=== PATIENT | female | born 1945 | race Caucasian/White ===

== ENCOUNTER 2023-06-07 03:53 | Emergency (ER) | payer MEDICARE, BC, SELFPAY ==
--- NOTE | ~2023-06-07 | XR_ITS ---
EXAMINATION: XR abdomen gastric tube rechec DATE: 06/07/2023 08:52 INDICATION: G-tube reinsertion TECHNIQUE: A supine view of the abdomen and lower chest was obtained for evaluation of feeding tube placement. COMPARISON: None. FINDINGS: Dilution volume of the percutaneous gastrostomy tube projects over the shadow the gastric body in the left upper quadrant. No dilated loops of gas-filled bowel to suggest obstruction. Mild lumbar levocu rvature with moderate to severe lower lumbar spondylosis. Nonspecific globular appearing calcificatio ns project over the right sacrum. IMPRESSION: 1. Percutaneous gastrostomy tube bulb projects over the body the stomach. Reviewed, dictated and finalized at location A. YARD HELPER
[2023-06-07 04:08] VITALS: BP 115/89; PULSE 130; RESP 16; O2SAT 97
[2023-06-07 05:49] VITALS: BP 123/69; PULSE 102; RESP 18; TEMP 36.6; O2SAT 95
--- NOTE | 2023-06-07 07:26 | PC.NURSE ---
patient arrived with olvera catheter in place of g-tube. patient confused during assessment.
--- NOTE | 2023-06-07 07:36 | PC.NURSE ---
spoke with josefina at [facility]. patient pulled G-tube out around 0330. 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 baseline is A&Ox1.
--- NOTE | 2023-06-07 08:29 | ED.GENADULT ---
HPI - General Adult General Chief complaint: Unspecified Stated complaint: G-tube removal Time Seen by Provider: 06/07/23 08:24 History of Present Illness HPI narrative: Patient is a 50-year-old female who presents to the emergency department this morning due to her G-tube coming. Patient had a stroke approximately 2 weeks ago and had a G-tube placed to which at around 3:30 a.m. this morning, G-tube did come off. [facility] did place a Plamer in place of the EG to and patient was brought to our facility for G-tube replaced. Patient is currently denying any symptoms including any abdominal pain, nausea or vomiting. She also denies any chest pain or shortness of breath. There are other modifying, alleviating, or precipitating factors at this time. The remainder of the history present illness is negative unless stated otherwise in HPI. Related Data Allergies Allergy/AdvReac Type Severity Reaction Status Date / Time adhesive tape Allergy Unknown Verified 06/07/23 09:55 simvastatin Allergy Unknown Verified 06/07/23 09:55 Review of Systems Review of Systems: All systems are reviewed and are negative unless stated otherwise in the HPI. PMFSH Comments Recent stroke, status post G-tube placement and colostomy. Patient denies a significant family history. Denies any tobacco use, alcohol abuse, illicit drug use. Exam Narrative: General: Alert, awake, afebrile, in no acute distress. HEENT: PERRL, no rhinorrhea, no post nasal drip, oropharynx clear. Neck: Trachea midline, no JVD, no lymphadenopathy. Cardiovascular: Regular rate and rhythm, no murmurs, rubs or gallops, no peripheral edema. Respiratory: Clear to auscultation bilaterally, no tachypnea, no wheezing, no rhonchi, no rubs, no respiratory distress. Abdomen: Soft, nontender, nondistended, no rebound, no guarding, no peritoneal signs, Palmer in place of the G-tube site, colostomy bag. Musculoskeletal: No joint swelling or deformity, normal muscle tone. Skin: No rashes or petechia, no signs of infection. Psychiatric: Alert and oriented, normal behavior and judgment for situation. Neurological: Alert and oriented to person, place, and time. Follows all commands. No focal deficits, speech is clear and fluent. Course Vital Signs Vital signs: Vital Signs Pulse Rate 130 H 06/07/23 04:08 Respiratory Rate 16 06/07/23 04:08 Blood Pressure 115/89 06/07/23 04:08 Pulse Oximetry 97 06/07/23 04:08 Oxygen Delivery Room Air 06/07/23 04:08 Temperature 97.9 F 06/07/23 05:49 Pulse Rate 98 06/07/23 09:56 Respiratory Rate 20 06/07/23 09:56 Blood Pressure 120/72 06/07/23 09:56 Pulse Oximetry 97 06/07/23 09:56 Oxygen Delivery Room Air 06/07/23 04:08 Medical Decision Making MDM Narrative Medical decision making narrative: The patient was evaluated by myself in the emergency department. History is obtained from patient who is an independent historian and physical exam was performed. External medical records were reviewed at this time. Patient's Palmer catheter worsen moved and 16 and should G-tube was reinserted. Imaging studies obtained included due to abdominal series which was independently interpreted by me revealing proper G-tube positioning, which is pending final radiology interpretation. Differential diagnosis considerations include due to malfunction. Comorbidities impacting this visit include recent stroke status post G-tube placement. I have evaluated and discussed social determinants of health with the patient that could potentially impact subsequent diagnosis and treatment plans. On repeat assessment of the patient, reevaluation revealed that the patient is doing well and is in no acute distress. Patient symptoms have improved since she arrived to our emergency department. Repeat vital signs were all reviewed and noted to be stable. Differential diagnosis and treatment plan were discussed with the patient at bedside. Patient a
--- NOTE | 2023-06-07 08:29 | PC.NURSE ---
g-tube replaced by provider at this time
[2023-06-07 09:56] VITALS: BP 120/72; PULSE 98; RESP 20; O2SAT 97
== END 2023-06-07 10:25 ==
LOC: ANHED 09:30
PROVIDERS: Emergency Provider Emergency Medicine; PCP Internal Medicine
DX: Z43.1 Encounter for attention to gastrostomy (principal); Z86.73 Personal history of transient ischemic attack (TIA), and cerebral infarction without residual deficits; Z93.3 Colostomy status
CPT/HCPCS: 43762; 99283

== ENCOUNTER 2024-05-19 11:06 | Outpatient (RCR) | payer MEDICARE, BC, SELFPAY ==
--- NOTE | 2024-06-01 11:58 | OTOPDC ---
Assessment and note entered by Priyanka Blankenship OT Evaluation Information Assessment Status Discharge Reported Pain Level Pain Score 0: Self Report Assessment OT Clinical Summary The patient demonstrates minimal progress toward L UE AROM, visual neglect, L UE strength and digit extension which have increased the mobility of L wrist, elbow and shoulder to avoid contractures and attend to left side of patient. The patient demonstrates no progress in self feeding skills, digit extension and digit opposition due to no carryover of HEP at home and cognitive deficits that affect her initiation of exercises and memory to complete activities at home. The patient demonstrates minimal progress toward goals at this time resulting in decreased function of L UE and continued L sided neglect affecting use of L UE during daily tasks. Therapist has educated patient and daughter on completing HEP and to address visual neglect with exercises and compensatory strategies. The patient demonstrates difficulty with carryover and is discharged this date due to minimal progress and has been educated to complete HEP with therapist sending the patient home with HEP and instructions on continued practice of visual scanning techniques at home. Plan of Care OT Services Indicated No
--- NOTE | 2024-06-01 11:58 | OPREHPOC ---
Outpatient Therapy Plan of Care This is a Multidisciplinary Plan of Care that may contain components documented by all disciplines (PT, OT, and ST.) PT Problem 1 PT Problem #1 Knowledge Deficit PT Goal 1 Goal / Goal Update 1. independent and compliant with HEP Target Visit 6 Progress Not Met PT Goal 2 Goal / Goal Update need home theatre technician or family assist Target Visit 20 PT Problem 2 PT Problem #2 Impaired Balance PT Goal 1 Goal / Goal Update 1. no falls while a patient of skilled PT. Target Visit 12 Progress Met PT Goal 2 Goal / Goal Update . Target Visit 20 PT Problem 3 PT Problem #3 Impaired Functional Mobility PT Goal 1 Goal / Goal Update 1. patient to perform sit to stand with SBA without cueing needed 2. patient to independently grab onto WW with both hands 3. patient to safely ambulate 40ft with WW and SBA Target Visit 12 Progress Not Met PT Goal 2 Goal / Goal Update . Target Visit 20 OT Problem 1 OT Problem #1 Knowledge Deficit OT Goal 1 Goal / Goal Update The patient and family will demonstrate understanding and follow through with HEP to improve UE function needed to maximize independence with ADLs. DISCONTINUE Target Visit 20 Progress Not Met OT Problem 2 OT Problem #2 Impaired Functional ADLs OT Goal 1 Goal / Goal Update The patient will demonstrate good skill for self feeding performing with mod I using L UE to maintain nutrition. DISCONTINUE; POOR CARRYOVER Target Visit 20 Progress Partially Met OT Problem 3 OT Problem #3 Impaired Range of Motion OT Goal 1 Goal / Goal Update The patient will demonstrate increased AROM of L UE demonstrating L shoulder abduction at 90 degrees, L shoulder flexion >50 degrees, L elbow extension to 0 degrees, L wrist extension >40 degrees, full digit flexion and extension in order to reach overhead to don shirts. GOAL PROGRESSING; CONTINUE Shoulder abduction: 82 degrees Shoulder flexion: 85 degrees Elbow extension: 32 degrees from 0 into flexion Wrist extension: 30 degrees DISCHARGE: Shoulder abduction: 91 degrees Shoulder flexion: 90 degrees Elbow extension: 40 degrees from 0 into flexion Wrist extension: 55 degrees Target Visit 20 OT Problem 4 OT Problem #4 Impaired Strength OT Goal 1 Goal / Goal Update The patient will demonstrate L UE elbow flexion/ extension strength at 5/5 and L shoulder abduction at 4-/5 needed to perform UB/LB dressing tasks. GOAL PROGRESSING; CONTINUE L UE STRENGTHENING Elbow flexion/extension: 4/5 Shoulder abduction: 3-/5 with pain reported in muscle R shoulder flexion: 5/5 R elbow flexion/extension: 5/5 DISCHARGE: Elbow flexion: 4+/5 Elbow extension: 4/5 Shoulder abduction: 3+/5 with pain reported in muscle R shoulder flexion: 5/5 R elbow flexion/extension: 5/5 Target Visit 20 Progress Partially Met OT Goal 2 Goal / Goal Update The patient will demonstrate >45 lbs of career services assistant strength of L hand needed to grasp items for grooming. DISCONTINUE TO FOCUS ON EXTENSION L career services assistant: 15 lbs Target Visit 10 Progress Not Met OT Problem 5 OT Problem #5 Impaired Coordination OT Goal 1 Goal / Goal Update The patient will demonstrate increased fine motor coordination of L hand by performing digit opposition to L ring and small finger with minimal difficulty needed to perform grooming. DISCONTINUE TO FOCUS ON EXTENSION The patient is able to oppose digits to ring finger but unable to reach small finger DISCONTINUE Target Visit 10 Progress Not Met OT Goal 2 Goal / Goal Update The patient will demonstrate decreased L sided neglect locating >14 bells on Bahena Cancellation test and will require min verbal cues to follow two step commands needed to improve cognition for daily tasks. 17 bells to R 2/3 of page, minimal to moderate verbal cues to follow 2-step commands. DISCONTINUE Target Visit 20 Progress Not Met
== END 2024-06-01 13:22 | disposition home or self-care (01) ==
LOC: CHSOT 11:06
DX: I69.398 Other sequelae of cerebral infarction (principal); R26.2 Difficulty in walking, not elsewhere classified; R53.1 Weakness
CPT/HCPCS: 97110; 97112; 97140; 97530

== ENCOUNTER 2024-06-06 12:54 | Emergency (ER) | payer MEDICARE, SELFPAY ==
--- OUTSIDE RECORDS SUMMARY | 2024-06-06 12:56 | XMS_ITS | Referral Summary ---
Author Organization [facility] Address [address] [place] [address] Care Team Providers Care Endoscopy Registered Nurse Name Role Phone Christine Ortiz TIMBER INSPECTOR-WOMENS VOLLEYBALL COACH Primary Care Provider Source Comments [facility],non-owned Affiliates and Associated Physician Practices is amultiple site organization consisting of ambulatory clinics and hospital sitesin [place], [place], [place] and [place]. This disclosure is being madepursuant to the Care Everywhere program and may not contain all information available regarding this patient. Last updated 18.[facility] Encounters Date Type Department Care Team Description 04/20/2024 Refill [facility] [address] [place] [address], [place] [address] Faith Spicer MD Refill Request from Last 3 Months Allergies Active Allergy Reactions Criticality Noted Date Comments Adhesive Sensitivity Rash,Eye Redness Medium Simvastatin Psychiatric Medium 12/17/2017 Causes cognitive impairment Medications * Be aware that medications may not be up to date on this document. Alwaysverify current medications with the patient. Medication Sig Dispensed Refills Start Date End Date Status acetaminophen (TYLENOL) 325 MG tablet Take 2 tablets by mouth every 6 hours as needed for Pain Maximum allowable Acetaminophen amount = 4 Grams (4000 mg) / 24 hours. 01/14/2018 Active amiodarone (Cordarone) 200 MG tablet Take 1 (one) tablet by mouth once daily 60 tablet 5 12/16/2023 Active aspirin (Aspirin) 81 MG chew tablet Take 1 (one) tablet by mouth once daily 100 tablet 4 12/16/2023 Active nystatin (Mycostatin) 226663 UNIT/GM powder Apply to affected area 2 times daily 60 g 5 12/16/2023 Active escitalopram (Lexapro) 20 MG tablet Take 1 (one) tablet by mouth once daily 90 tablet 4 12/16/2023 Active atorvastatin (Lipitor) 20 MG tablet Take 1 (one) tablet by mouth once daily 100 tablet 4 12/16/2023 Active psyllium (Metamucil) 58.6 % powder Take 1 (one) packet by mouth 2 times daily 54 packet 5 12/16/2023 Active traZODone (Desyrel) 50 MG tablet Take 1 (one) tablet by mouth at bedtime 90 tablet 4 12/16/2023 Active Cholecalciferol (Vitamin D3) 25 MCG (1000 UT) Take 1 (one) capsule by mouth once daily 30 capsule 5 12/16/2023 Active metoprolol succinate XL 24hr (Toprol XL) 50 MG tablet TAKE 1 TABLET BY MOUTH EVERY DAY 90 tablet 1 01/13/2024 Active OLANZapine (ZyPREXA) 2.5 MG tabletIndications: Psychosis, unspecified psychosis type (HCC) Take 1 (one) tablet by mouth once daily 90 tablet 4 02/20/2024 Active levETIRAcetam (Keppra) 500 MG tablet TAKE 1 (ONE) TABLET BY MOUTH 2 TIMES DAILY 180 tablet 3 04/22/2024 Active Active Problems Problem Noted Date Diagnosed Date Goals of care, counseling/discussion 10/18/2023 Malnutrition 08/20/2023 Acute on chronic intracranial subdural hematoma 08/18/2023 Recurrent falls 08/18/2023 Colon adenocarcinoma 07/15/2023 CVA (cerebrovascular accident) 06/20/2023 Malignant tumor of colon 06/20/2023 Non-ST elevation (NSTEMI) myocardial infarction 06/20/2023 Presence of cardiac pacemaker 07/12/2021 Bradycardia 06/22/2021 Sinoatrial block 06/22/2021 Sick sinus syndrome 06/22/2021 Status post placement of implantable loop record er 06/06/2021 SHRUTHI (obstructive sleep apnea) 10/13/2017 Atrial fibrillation with RVR 09/16/2017 Sleep apnea 09/16/2017 HTN (hypertension) 07/13/2015 Asthma 07/13/2015 Syncope 05/29/2015 Essential hypertension 02/21/2015 Overview (02/26/2024): Essential hypertension Multiple-type hyperlipidemia 02/21/2015 Overview (02/26/2024): Mixed hyperlipidemia Arteriosclerosis of coronary artery 05/07/2013 Overview (02/26/2024): CRNRY ATHRSCL NATVE VSSL Paroxysmal atrial fibrillation 05/07/2013 Overview (02/26/2024): ATRIAL FIBRILLATION Resolved Problems Problem Noted Date Diagnosed Date Resolved Date Family history of hypertension 02/26/2024 02/26/2024 Acute renal failure 10/18/2023 02/26/20 24 Delirium 10/18/2023 02/26/2024 Leukocytosis 10/18/2023 02/26/2024 E. coli UTI (urinary tract infection) 08/24/2023 03/11/2024 Delirium due to another medical condition 08/21/2023 02/26/2024 History of cardioembolic cer ebrovascular accident (CVA) 07/15/2023 02/26/2024 Encounter for preprocedural cardiovascular examination 06/20/2023 02/26/2024 Ventricular fibrillation 06/20/202310/2023 Abnormal finding on GI tract imaging 04/05/2023 02/26/2024 Gastrointestinal hemorrhage 04/05/2023 02/26/2024 Acute stroke due to ischemia 03/26/2023 02/26/2024 Persistent atrial fibrillation 06/14/2020 02/26/2024 Atrial flutter 03/25/2019 02/26/2024 Ankle edema 01/27/2019 02/26/2024 Weak arterial pulse 01/27/2019 02/26/20 Chronic anticoagulation 07/28/201710/2023 Immunizations Name Administration Dates Next Due COVID PFIZER BIVALENT 12Y+ 30mcg/0.3ML Covid Pfizer primary monoval ent 12+ yr 0.3mL Purple cap 03/02/2021,07/13/2020,06/14/2020 FLU VACCINE TRI IIV3 SPLIT IM (FLUVIRIN) 017,01/20/2012 INFLUENZA VACCINE, HIGH-DOSE , QUADR. (FLUZONE HIGH-DOSE QUADRIVALENT; 65Y+), 0.7 ML (HD-IIV4) 01/20/2022,02/01/2021 INFLUENZA VACCINE, HIGH-DOSE , TRIV. (FLUZONE HIGH-DOSE TRIVALENT; 65Y+) (HD-IIV3) 02/11/2018,04/25/2015 INFLUENZA VACCINE, QUADR. (A FLURIA, FLUZONE QUADRIVALENT; 6MO+) (IIV4) 01/20/2020,02/17/2014 INFLUENZA VACCINE, QUADR. (F LUZONE; FLULAVAL; FLUARIX; AFLURIA QUADRIVALENT; 6MO+), 0.5 ML (IIV4) 02/12/2019 PNEUMOCOCCAL PPV VACCINE 05/05/2012 Pneumococcal Pcv13 Conj 02/12/2019 TDAP, HISTORIC VACCINE 02/19/2019 Zoster Hzv Vacc Recombinant Inj Im 05/07/2019, Social History Tobacco Use Types Packs/Day Years Used Date Smoking Tobacco: Former Smokeless Tobacco: Never Comments:quit 36 yrs ago Alcohol Use Standard Drinks/Week Comments Yes 14 (1 standard drink = 0.6 oz pu re alcohol) Sex and Gender Information Value Date Recorded Sex Assigned at Not on file Gender Identity Not on file Sexual Orientation Not on file Last Filed Vital Signs Vital Sign Reading Time Taken Comments Blood Pressure 94/69 02/20/2024 9:34 AM CDT Pulse 90 02/20/2024 9:34 AM CDT Temperature 36.7 C (98 F) 11/08/2023 11:43 AM CDT Respiratory Rate 18 11/08/2023 11:43 AM CDT Oxygen Saturation 94% 02/20/2024 9:34 AM CDT Inhaled Oxygen Concentration - - Weight 62.6 kg (138 lb) 11/08/2023 11:43 AM CDT Height 157.5 cm (5' 2 ) 11/08/2023 11:43 AM CDT Body Mass Index 25.24 11/08/2023 11:43 AM CDT Functional Status Functional Status Response Date of Assess ment Is person deaf or have serious hearing difficult y? No 09/16/2017 Is person blind or have serious difficulty seein g? Yes 09/16/2017 Does person have serious dif ficulty walking/climbing stairs? No 09/16/2017 Does person have difficulty dressing/bathing? No 09/16/2017 Does person have difficulty doing errands alone? No 09/16/2017 Cognitive Status Response Date of Assessm ent Does person have difficulty concentrating/remembering/making decisions? No 09/16/2017 Plan of Treatment Upcoming Encounters Date Type Department Care Team (Late st Contact Info) Description 2024 11:00 AM CAP INSPECTOR Office Visit [facility] [address], [place] [address] Christine Ortiz, CECILIA-WOMENS VOLLEYBALL COACH [address] [address] Advance Directives * Full Code (Latest Code Status on File) Date Activated Date Inactivated Comments 09/16/2017 6:24 PM 09/19/2017 4:15 PM Care Teams Endoscopy Registered Nurse Relationship Specialty Start Date End Date Christine Ortiz, CECILIA-WOMENS VOLLEYBALL COACH [facility] [address] PCP - General Nurse Practitioner 01/12/24
--- OUTSIDE RECORDS SUMMARY | 2024-06-06 12:56 | XMS_ITS ---
Author Organization [facility] Address [address] [place] [address] Care Team Providers Care Cinema Operator Name Role Phone AngelFrancesmark Almeida CORE JAVA SOFTWARE ENGINEER-JEWELRY CASTING MODEL MAKER Primary Care Provider Active Problems Problem Noted Date Diagnosed Date [...] atrial fibrillation 05/07/2013 Overview (02/26/2024): ATRIAL FIBRILLATION Current Oncology Plans No current plan information found. Past Plans No past plan information found. Radiation Treatments * No radiation treatments are documented for this patient in [facility]. Treatments may have been administered in another system. Lifetime Dose Tracking * Chemical Lifetime Dose Automatic Entry Manual Entr y Dose Length Product 2,201.64 mGy-cm 2,201.64 mGy-cm 0 mGy-cm Resolved Problems Problem Noted Date Diagnosed Date Resolved Date Family history of hypertension 02/26/2024 02/26/2024 Acute renal failure 10/18/2023 02/26/20 Delirium 10/18/2023 02/26/2024 Leukocytosis 10/18/2023 02/26/2024 E. [...]
--- OUTSIDE RECORDS SUMMARY | 2024-06-06 12:56 | XMS_ITS ---
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 More lucid in morning but usually doesn't know date or place, forgetful, talks about people who're , sundowns daily. At baseline is 1 assist, needs assistance with ADLs, needs wheelchair when outside. [facility] care clinic increased her zyprexa around 10/09 to 5mg at 8am and 5mg at 3p and made her trazodone scheduled at 9pm daily to help w sundowning.Pt started having lethargy and somnolence 10/15 pm Workup with wnl B12, folate, TSH, HIV, RPR. HCT shows no acute changes, improving SDH Ddx includes uremia from severe LLUVIA vs polypharmacy from recently increased psychotropics Giving IVF with resolving LLUVIA Required 1:1 observation for pt safety now off. Delirium precautions. Acute renal failure 10/18/2023 Assessment & Plan (10/27/2023 7:31 PM CDT): BUN 87, Cr 5 (baseline Cr 0.5). with AGMA (likely uremia. Wnl ketone and lactate), hyperphos, uric acid 11 Likely pre-renal iso lethargy. Improving w IVF. Kidney US normal without hydronephrosis Started bicarb. Rasburicase x1 for hyperuricemia - now resolved. PVRs were approp on 10/18 but then developed retention iso AMS - olvera placed 10/19>>removed 10/24 but failed voiding trial and replaced. Discussed(by previous hospitalist) w renal - likely prerenal.Given improvement with IVF will continue IVF and consult if plateaus Goals of care, counseling/discussion 10/18/2023 Assessment & Plan (10/27/2023 7:28 PM CDT): POA: Daughter Thu is primary, daughter Laila is alternate Code Status: Thu wants FC, Laila wants DNRDNI Given recent decline and acute renal failure, cont GOC. Pall care cs as they see her outpt and have been managing her psychotropics Leukocytosis 10/18/2023 Assessment & Plan (10/27/2023 7:28 PM CDT): WBC 15 on admit,now resolved workup: no fevers, UA neg, CXR neg, flu/covid neg Suspicion for infection was low, likely just hemoconcentrated. No ostomy changes or abd symptoms to suspect intraabd infection. 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 No acute fracture or osseous erosion related to the multifocal soft tissue swelling. E. coli UTI (urinary tract infection) 08/24/2023 Assessment & Plan (10/27/2023 7:31 PM CDT): UA from 10/23 positive, cultures growing E coli Ceftriaxone 1 g daily for 3 days Assessment & Plan (08/25/2023 10:55 PM CDT): - UA from 08/22 was remarkable for bacteruria with LE+. Could likely be contributing to the delirium - Started on Ceftriaxone on 08/22, UCx was remarkable for urogenital carlos - Plan to complete a 5 day course given improvement in mentation till 08/26 Delirium due to another medical condition 2023 Assessment & Plan (08/25/2023 10:55 PM CDT): - Noted fluctuations in mood with episodes of delirium/agitation which is likely multifactorial iso age related changes,active malignancy, prolonged illness and particularly post CVA. - Psych consulted and per recs and given c/f prolonged QTC, held Memantine,Celexa and Quetiapine. - c/w Olanzapine 2.5 mg po q12h - Counseled the family that these potential changes may be permanent and not reversible. Recommended palliative care consult for better symptom management as OP. - UA from 08/22 was remarkable for bacteruria with LE+. Could likely be contributing to the delirium. Started on IV Abx on 08/22. Malnutrition (CMS/HCC) 08/20/2023 Assessment & Plan (08/21/2023 6:16 PM CDT): - RD following Acute on chronic intracranial subdural hematoma (CMS/HCC) 08/18/2023 Assessment & Plan (10/27/2023 7:29 PM CDT): Last hospitalized here 08/2023 for acute on chronic SDH iso fall. No intervention per nsgy Repeat HCT 10/17 w/ decrease in size of SDH, no other acute abnormalities Fall precautions Delirium precautions Per last NSGY note in July, for VTE ppx Assessment & Plan (08/25/2023 11:00 PM CDT): - Patient with prior history of L frontoparietal SDH s/p L MMA embolization on 06/24/23 presenting following recurrent fall with trauma to L-side of face with Head CT at [place] overread as concern for increase in size of chronic L SDH - she was recommended to return for further evaluation - Here evaluation with stable CMP/CBC, hs-trop 4, UA negative, EKG paced-rhythm, CXR clear, and Head CT with slight interval increase in size/density of mixed density L cerebral convexity subdural collection without significant midline shift or new/acute intracranial hemorrhage. - NSGY evaluated with recommendation for close monitoring without any further intervention. - Cont q8 neurochecks, fall precautions. - PT/OT is recommending IPR, family is exploring their options given high recurrent fall risk and decline in function. Eligible for TRISL per CM but the participation would depend on further clinical course Recurrent falls 08/18/2023 Assessment & Plan (08/23/2023 1:50 PM CDT): - Imaging/exam with extensive L frontal scalp hematoma without facial fracture - Geritrauma evaluated with no concern for new injury - PT/OT is recommending IPR, family is agreeable for STR per CM,awaiting placement - Fall precautions Colon adenocarcinoma 07/15/2023 Assessment & Plan (10/27/2023 7:30 PM CDT): Diagnosed during prolonged hospitalization in 03/2023 now s/p R hemicolectomy with ostomy, deemed not a candidate for adjuvant therapy given comoribidities. Follows with Dr. Calloway. Ostomy care Given recent decline cont GOC w family Assessment & Plan (07/15/2023 1:43 AM CDT): Follows with Dr. Sanchez. 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 S/p R hemicolectomy with end ileostomy 04/19/2023, path showing ascending colon adenocarcinoma WITHOUT further NEC component. 0/19 LN. LVI+/PNI+. Adjuvant chemotherapy NOT recommended, and recommended surveillance. 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 Resume on discharge - Not on AC at this time due to SDH with plan for Watchman procedure in future for AF Syncope 07/14/2023 Assessment & Plan (07/15/2023 4:50 PM CDT): Reported tachypnea, head falling back, loss of consciousness around 07/13 @1400 while in wheelchair getting ostomy cleaned. Suspect vasovagal vs cardiogenic. 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 Interrogation normal. No episodes of VFib/Vtach. Patient in AFib, which is chronic. Plan - Telemetry -Follow EEG in process, if positive will consult Neuro - Hold lasix for now, restart pending initial workup -obtain UA -Plan to discharge tmrw pending remaining workup Abnormal finding on GI tract imaging 04/05/2023 Gastrointestinal hemorrhage 04/05/2023 Acute stroke due to ischemia 03/26/2023 Status post placement of implantable loop record er 06/06/2021 Persistent atrial fibrillation 06/14/2020 Assessment & Plan (08/18/2023 11:41 PM CDT): - Cont metoprolol SHRUTHI (obstructive sleep apnea) 10/13/2017 Assessment & Plan (10/18/2023 9:29 PM CDT): Noncompliant w/ CPAP Assessment & Plan (08/18/2023 11:41 PM CDT): - Non-compliant with CPAP Assessment & Plan (07/15/2023 1:37 AM CDT): Not adherent to CPAP Chronic anticoagulation 07/28/2017 Essential hypertension 02/21/2015 Overview (07/26/2016): Essential hypertension Assessment & Plan (10/18/2023 9:29 PM CDT): Metop Assessment & Plan (08/18/2023 11:41 PM CDT): - Cont metoprolol Multiple-type hyperlipidemia 02/21/2015 Overview (07/26/2016): Mixed hyperlipidemia CAD (coronary artery disease) 05/07/2013 Overview (07/25/2016): CRNRY ATHRSCL NATVE VSSL Assessment & Plan (10/27/2023 7:30 PM CDT): s/p stents 03/2023 ASA (ok'ed per last nsgy note), statin, metop Assessment & Plan (08/21/2023 6:19 PM CDT): - s/p cardiac arrest in setting of NSTEM s/p GUERA to LAD in 03/2023 - Held Plavix given high risk for recurrent falls after discussing with cardio/Onc - Cont ASA, statin, metoprolol - CTM Paroxysmal atrial fibrillation ([facility]/HCC) 014 Overview (07/25/2016): ATRIAL FIBRILLATION Assessment & Plan (10/27/2023 7:30 PM CDT): Amio, metop Not on AC d/t SDH Assessment & Plan (07/15/2023 1:30 AM CDT): S/p ablation and PPM placement. Not on AC due to SDH, and planning on Watchman procedure at some point in the future - Continue home toprol 200mg, amiodarone 200mg daily - Biotronik DCPPM Current Treatment and Therapy Plans No current plan information found. Past Treatment and Therapy Plans No past plan information found. Lifetime Dose Tracking * Chemical Lifetime Dose Automatic Entry Manual Entr y Fluoro Time 48.1 minutes 48.1 minutes 0 minutes Air kerma at the reference point (Ka,r) 2,142.5 mGy 1 ,371.5 mGy 771 mGy DLP 24,046 mGycm 24,046 mGycm 0 mGycm Resolved Problems Problem Noted Date Diagnosed Date Resolved Date Subdural hematoma 07/15/2023 08/18/2023 Assessment & Plan (08/18/2023 11:43 PM CDT): - Assessment & Plan (07/15/2023 1:36 AM CDT): Subdural hematoma left sided unchanged from prior, s/p MMA embolization 06/2023. Cardiac arrest due to NSTEMI s/p GUERA 05/02/2023 04/05/2023 08/18/2023 Assessment & Plan (07/15/2023 5:40 AM CDT): Prior VF arrest found with LAD lesion s/p PCI GUERA 05/02/2023. ICD deferred due to reversible lesion at the time. - Home ASA/plavix/statin Malignant neoplasm of ascend ing colon (CMS/HCC) 04/05/2023 10/18/2023 Cancer Staging:Pathologic stage from 04/19/2023:Stage IIA(pT3, pN0, cM0) - Signed by Lea Sanchez MD on 06/02/2023 Assessment & Plan (08/24/2023 2:29 PM CDT): - Diagnosed during prolonged hospitalization in 03/2023 now s/p R hemicolectomy with ostomy, deemed not a candidate for adjuvant therapy given comoribidities - Follows with Dr. Calloway - [facility] On amiodarone therapy 05/20/20182020 Goals of care, counseling/discussion 07/28/2017 10/18/2023 Postprocedural state 02/21/2015 019 Overview (07/26/2016): S/P ablation of atrial fibrillation Atrial flutter ([facility]) 05/07/2013 Overview (07/26/2016): ATRIAL FLUTTER Assessment & Plan (08/18/2023 11:41 PM CDT): - Cont metoprolol
--- OUTSIDE RECORDS SUMMARY | 2024-06-06 12:56 | XMS_ITS | Clinical Summary ---
Author Organization [facility] [address] Address [address] [place] [address] Care Team Providers Care Environmental Field Team Member Name Role Phone Neeraj Izaguirre MD, William C. Unavailable Faith Streeter NP Unavailable Jef Qureshi MD Unavailable [phone] Faith Spicer MD Primary Care Provider [phone] Sena Matthews MD Unavailable [phone] Allergies Active Allergy Reactions Criticality Noted Date Comments Adhesive Rash,Redness Medium 06/17/2023 Simvastatin Mental status changes Low 12/17/2017 Causes cognitive impairment Medications amiodarone (PACERONE) 400 mg tablet Take 0.5 tablets (200 mg total) by mouth daily 05/13/19 24 Active artificial tears,hypromellos e, 0.3 % drops Administer 1 drop into affected eye(s) every 4 (four) hours as needed Active metoprolol XL (TOPROL-XL) 50 mg extended release tablet Take 1 tablet (50 mg total) by mouth daily Active acetaminophen (TYLENOL) 325 mg tablet Take 2 tablets (650 mg total) by mouth every 6 (six) hours as needed for pain Active atorvastatin (LIPITOR) 40 mg tabletIndications :hyperlipidemia Take 1 tablet (40 mg total) by mouth nightly 08/27/19 24 025 Active Additional Information Patient taking differently: 20 mgoral Nightly, Indications: hyperlipidemia, Reported on 05/07/2024 aspirin 81 mg chewable tablet Take 1 tablet (81 mg total) by mouth every morning 08/28/19 24 025 Active polysaccharide iron complex (NU-IRON) 150 mg iron capsuleIndication s:Iron Deficiency Anemia Take 1 capsule (150 mg total) by mouth daily Active nystatin powder Apply to affected area with pouch changes 30 g 1 10/03/19 24 Active traZODone (DESYREL) 50 mg tablet Take 1 tablet (50 mg total) by mouth nightly 10/28/19 24 Active sodium bicarbonate 650 mg tablet Take 1 tablet (650 mg total) by mouth 3 (three) times a day 10/28/19 24 025 Active ketotifen (ZADITOR) 0.025 % ophthalmic solutionIndicatio ns:Allergic Conjunctivitis Administer 2 drops into the right eye daily 10/28/19 24 Active escitalopram (LEXAPRO) 10 mg tablet Take 1 tablet (10 mg total) by mouth daily Active cholecalciferol 25 mcg (1,000 unit) tablet Take 1 tablet (1,000 Units total) by mouth daily Active levETIRAcetam (KEPPRA) 500 mg tablet Take 1 tablet (500 mg total) by mouth 2 (two) times a day 60 tablet 11/11/19 24 Active psyllium (MetamuciL) 0.4 gram capsule Take 1 capsule (0.4 g total) by mouth 2 (two) times a day Active loperamide (IMODIUM) 2 mg capsuleIndication s:high output ileostomy Take 2 capsules (4 mg total) by mouth 3 (three) times a day with meals 168 capsule 2 12/08/19 24 Active levalbuterol (XOPENEX) 0.63 mg/3 mL nebulizer solutionIndicatio ns:Intermittent asthma, unspecified asthma severity, unspecified whether complicated Take 3 mL (0.63 mg total) by nebulization every 6 (six) hours as needed for wheezing 180 mL 1 12/29/19 24 Active psyllium, aspartame, SF (Daily Fiber, psyllium-aspart,) 3.4 gram packet Take 1 packet by mouth 2 (two) times a day 12/16/19 24 Active baclofen (LIORESAL) 5 mg tablet Take 0.5 tablets (2.5 mg total) by mouth 3 (three) times a day 90 tablet 3 05/07/19 25 025 Active QUEtiapine (SEROquel) 25 mg tabletIndications :agitation in dementia Take 1 tablet (25 mg total) by mouth nightly 30 tablet 11 06/04/19 25 026 Active OLANZapine (ZyPREXA) 2.5 mg tabletIndications :agitation/ dementia Take 1 tablet (2.5 mg total) by mouth daily as needed (agitation) 30 tablet 3 06/04/19 25 Active OLANZapine (ZyPREXA) 5 mg tablet Take 1 tablet (5 mg total) by mouth nightly 30 tablet 3 06/04/19 25 026 Active nitrofurantoin monohydrate (MACROBID) 100 mg capsuleIndication s:Urinary Tract/Genitourina ry Infection Take 1 capsule (100 mg total) by mouth 2 (two) times a day 14 capsule 02/02/20 24 025 Discontinu ed(Therapy completed) QUEtiapine (SEROquel) 25 mg tabletIndications :agitation in dementia Take 1 tablet (25 mg total) by mouth nightly 30 tablet 05/07/19 25 025 Discontinu ed(Reorder ) ciprofloxacin (CIPRO) 500 mg tabletIndications :Urinary Tract/Genitourina ry Infection Take 1 tablet (500 mg total) by mouth 2 (two) times a day for 5 days 10 tablet 05/12/19 25 025 Active Problems Problem Noted Date Diagnosed Date Delirium 10/18/2023 Assessment & Plan (10/27/2023 7:28 PM CDT): Per daughter, at baseline pt has left sided weakness, arm weaker than leg. More lucid in morning but usually doesn't know date or place, forgetful, talks about people who're , sundowns daily. At baseline is 1 assist, needs assistance with ADLs, needs wheelchair when outside. 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 Interrogation normal. No episodes of VFib/Vtach. Patient [...] CAD (coronary artery disease) 05/07/2013 Overview (07/25/2016): CRBIMAL MYERSCL NATVE VSSL Assessment & Plan (10/27/2023 7:30 [...] statin, metoprolol - CTM Paroxysmal atrial fibrillation (CMS/HCC) 014 Overview (07/25/2016): ATRIAL FIBRILLATION Assessment & Plan (10/27/2023 7:30 PM CDT): Amio, metop Not on AC d/t SDH Assessment & Plan (07/15/2023 1:30 AM CDT): S/p ablation and PPM placement. Not on AC due to SDH, and planning on Watchman procedure at some point in the future - Continue home toprol 200mg, amiodarone 200mg daily - Biotronik DCPPM Resolved Problems Problem Noted Date Diagnosed Date [...] comoribidities - Follows with Dr. Calloway - CT On amiodarone therapy 05/20/20182020 Goals of care, counseling/discussion 07/28/2017 10/18/2023 Postprocedural state 02/21/2015 019 Overview (07/26/2016): S/P ablation of atrial fibrillation Atrial flutter ([facility]) 05/07/2013 Overview (07/26/2016): ATRIAL FLUTTER Assessment & Plan (08/18/2023 11:41 PM CDT): - Cont metoprolol Encounters Date Type Department Care Team Description 06/04/2024 1:00 PM SHOP TEACHER Residential Visit [facility] Palliative Care [address] [place] [address] Francisca Senior NP Arrived 05/14/2024 9:00 AM SHOP TEACHER Residential Visit [facility] Palliative Care [address] [place] [address] Francisca Senior NP Vascular dementia with other behavioral disturbance, unspecified dementia severity (HCC) (Primary Dx); Urinary tract infection without hematuria, site unspecified; CVA, old, hemiparesis ([facility]) (HCC); Palliative care encounter 05/12/2024 Documentation [facility] Palliative Care [address] [place] [address] Francisca Senior NP 05/12/[address] [address] Beti Granados RN 05/11/[address] [address] Beti Granados RN 05/10/[address] [address] Beti Granados, RN 05/07/2024 10:00 AM SHOP TEACHER Office Visit [facility] Stroke [address] [facility] [address] [place] [phone] Sena Matthews MD History of ischemic stroke (Primary Dx); Moderate dementia with agitation, unspecified dementia type (HCC); Spasticity due to old stroke 05/07/2024 Documentation [facility] Palliative Care [address] [place] [address] Francisca Senior NP 03/19/2024 1:00 PM SHOP TEACHER Residential Visit [facility] Palliative Care [address] [place] [address] Francisca Senior NP CVA, old, hemiparesis ([facility]) ([facility]) (Primary Dx); Coronary artery disease involving coquille heart, unspecified vessel or lesion type, unspecified whether angina present; Presence of ileostomy ([facility]) ([facility]); Agitation; Paroxysmal atrial fibrillation ([facility]) ([facility]) from Last 3 Months Immunizations Immunization Administration Dates Next Due Influenza, Quadrivalent, Split, Intramuscular ,02/17/2014 Influenza, Quadrivalent, Spl it, Preservative Free, Intramuscular 02/12/2019 Influenza, Trivalent, High D ose, Split, Preservative Free, Intramuscular 02/11/2018,04/25/2015 Influenza, Trivalent, IM (MDV) 02/18/2017,2011 Pneumococcal Conjugate PCV 13 02/12/2019 Pneumococcal Polysaccharide PPV23 05/05/2012 Tdap 02/19/2019 ZOSTER Recombinant 05/07/2019,02/19/2019 Surgical History Surgery Date Site/Laterality Comments HYSTERECTOMY IR G TUBE PLACEMENT PERCUTANEOUS 04/01/2023 N/A CARDIAC PACEMAKER PLACEMENT HEMICOLECTOMY W/ OSTOMY 04/19/2023 Right Stage II ascending colon adenocarcinoma. Potential for future ileostomy reversal. CORONARY ANGIOPLASTY WITH ST ENT PLACEMENT 05/02/2023 Bilateral LAD stenosis, GUERA placement Medical History Medical History Date Comments Hyperlipidemia Hypertension Atrial fibrillation ([facility]) ([facility]) Pacemaker in place Asthma SHRUTHI (obstructive sleep apnea) In tolerant of CPAP Cardiac arrest with ventricu lar fibrillation ([facility]) ([facility]) 04/05/2023 OOH, at [facility] Acute right MCA stroke ([facility]) 03/26/2023 Car dioembolic source Colon cancer ([facility]) ([facility]) 04/15/2023 Sta ge II Ileostomy in place ([facility]) ([facility]) 04/19/2023 NSTEMI (non-ST elevated myoc ardial infarction) ([facility]/HCC) ([facility]) 04/05/2023 LAD stenosis, cause of SCA CAD (coronary artery disease) EtOH dependence (CMS/HCC) ([facility]) Quit 03/2023 Aspiration pneumonia ([facility]/HCC) ([facility]) 04/05/2023 Dysphagia 04/01/2023 S/p CVA. PEG shameka david Nicotine dependence in remission Quit 1981, 3 ppd x15 years (45 pack years) Family History Medical History Relation Name Comments Lung cancer Father COD: 72y Breast cancer Sister 3 Anesthesia problems Neg Hx Relation Name Status Comments Daughter 1 Leatha Alive Daughter 2 Thu Alive Father Mother Sister 1 Alive Sister 2 Alive Sister 3 Alive Sister 4 Social History Tobacco Use Types Packs/Day Years Used Date Smoking Tobacco: Former Cigarettes 3 15 1 7 - 1981 Smokeless Tobacco: Former Quit: 1981 Tobacco Cessation:Counseling Given: Not Answered Alcohol Use Standard Drinks/Week Comments Yes 0 (1 standard drink = 0.6 oz pur e alcohol) [facility] [employer] Answer Date Recorded In the past 12 months has [employer], [employer] oil, or water [employer] threatened to shut off services in your home? Patient unable to answer 10/20/2023 Social Connection and Isolation Panel [NHANES] A nswer Date Recorded In a typical week, how many times do you talk on the phone with family, friends, or neighbors? Patient unable to answer 10/20/2023 How often do you get togethe r with friends or relatives? Patient unable to answer 10/20/2023 How often do you attend [facility] or yazidism services? Patient unable to answer 10/20/2023 Do you belong to any clubs o r organizations such as amish groups, unions, fraternal or athletic groups, or school groups? Patient unable to answer 10/20/2023 How often do you attend meet ings of the clubs or organizations you belong to? Patient unable to answer 10/20/2023 Are you , , di vorced, , never , or living with a partner? Patient unable to answer 10/20/2023 AUDIT-C Answer Date Recorded Frequency of Alcohol Consumption Not on file 06/17/2023 Q2: How many drinks containi ng alcohol do you have on a typical day when you are drinking? Patient does not drink Frequency of Binge Drinking Not on file 05/23 Overall Financial Resource Strain (CARDIA) Answe r Date Recorded How hard is it for you to pa y for the very basics like food, housing, medical care, and heating? Patient unable to answer 10/20/2023 Hunger Vital Sign Answer Date Recorded Within the past 12 months, y ou worried that your food would run out before you got the money to buy more. Patient unable to answer 10/20/2023 Within the past 12 months, t he food you bought just didn't last and you didn't have money to get more. Patient unable to answer 10/20/2023 PRAPARE - Transportation Answer Date Re corded In the past 12 months, has l ack of transportation kept you from medical appointments or from getting medications? Patient unable to answer 10/20/2023 In the past 12 months, has l ack of transportation kept you from meetings, work, or from getting things needed for daily living? Patient unable to answer 10/20/2023 Housing Stability Vital Sign Answer Rojas e Recorded In the last 12 months, was t here a time when you were not able to pay the mortgage or rent on time? Patient unable to answer 08/21/2023 In the last 12 months, how m any places have you lived? 0 08/21/2023 In the last 12 months, was t here a time when you did not have a steady place to sleep or slept in a long-term (including now)? Patient unable to answer 08/21/2023 Housing Stability Vital Sign Answer Rojas e Recorded In the last 12 months, was t here a time when you were not able to pay the mortgage or rent on time? Patient unable to answer 10/20/2023 In the past 12 months, how m any times have you moved where you were living? 2 10/20/2023 At any time in the past 12 m [facility], were you homeless or living in a long-term (including now)? Patient unable to answer 10/20/2023 Personal Safety Answer Date Recorded Have you ever been in or are you currently in a harmful physical or emotional relationship or is someone making you feel afraid or unsafe? Denies 10/18/2023 Education Answer Date Recorded What is the highest level of school you have completed or the highest degree you have received? 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) Not on file Not on file Not on file Obstetrics History Last Filed Vital Signs Vital Sign Reading Time Taken Comments Blood Pressure 96/66 05/07/2024 9:56 AM SHOP TEACHER Pulse 90 05/07/2024 9:56 AM SHOP TEACHER Temperature 36.4 C (97.6 F) 03/03/2024 3:22 PM SHOP TEACHER Respiratory Rate 18 03/03/2024 3:22 PM SHOP TEACHER Oxygen Saturation 96% 03/03/2024 3:22 PM SHOP TEACHER Inhaled Oxygen Concentration - - Weight 65.8 kg (145 lb) 05/07/2024 9:56 AM SHOP TEACHER Height 165.1 cm (5' 5 ) 05/07/2024 9:56 AM SHOP TEACHER Body Mass Index 24.13 05/07/2024 9:56 AM SHOP TEACHER Plan of Treatment Health Maintenance Due Date Last Done Comments Depression Screening 1945 Hepatitis C Screening 1945 Osteoporosis Screening-Bone Density Scan 1945 Hepatitis B Screening 1964 Well Visit 65+ 06/26/2011 Covid-19 Vaccine (4 - 2023-2 5 season) 2023 03/02/2021, 07/13/2020, 06/14/2020 Influenza Vaccine (#1) 2023 , 02/12/2019, 02/11/2018, Additional history exists Fall Risk Assessment 10/27/2024 10/28/2023 DTaP/Tdap/Td Vaccine (2 - Td or Tdap) 02/19/2029 02/19/2019 Pneumococcal vaccine 65+ Completed 02/12/2019, 04/21 Zoster Vaccine Completed 05/07/2019, 02/19/2019 Colon Cancer Screening-CT Colonography Discontinued 04/15/2023 Colon Cancer Screening-Colonoscopy Discontinued 04/15/2023 Colon Cancer Screening-DNA Stool Discontinued 04/15/20 Colon Cancer Screening-FIT Discontinued 04/15/2023 Colon Cancer Screening-FOBT Discontinued 04/15/2023 Colon Cancer Screening-Sigmoidoscopy Discontinued 04/15/2023 Colorectal Cancer Screening Discontinued Medical Devices Implanted Type Area Pattern Cleaner Device Identifier Shelf Expiration Date Model / Serial / Lot [employer]etsy Angio-Seal Vip 6fr Closere Device [id number] - [id number] - [id number] Implanted:Qty: 1 on 05/02/2023 by Isaac Garcia MD PhD at [facility] Collagen Right: Femoral [employer]ets[employer] 09/30/2023 [id number] / [id number] / [id number] [employer] Stent Coronary De Rx Cocr Ors Msn 2.5x40mm [id number] - [id number] - [id number] Implanted:Qty: 1 on 05/02/2023 by Isaac Garcia MD PhD at [facility] Stent [employer] 12/14/2024 [id number] / [id number] / [id number] Pacemaker Left: Chest [employer] Trufill Glue 1gm Nbca [id number] - [id number] Implanted:Qty: 1 on 06/24/2023 at [facility] [employer] 04/20/2025 [id number] / / [id number] Procedures Procedure Name Priority Date/Time Associated Diagnosis Comments COLONOSCOPY 04/15/2023 9:23 AM SHOP TEACHER from Last 3 Months or Most Recently Relevant to Health Maintenance Results * COLONOSCOPY (04/15/2023 9:23 AM SHOP TEACHER) Anatomical Region Laterality Modality Other Narrative Procedure Note Ld Dunn MD - 04/15/2023 9:23 AM [facility] Patient Name: Shantelle Crystal Procedure Date: 04/15/2023 9:23 AM Date of : 1945 Admit Type: Inpatient Age: 77 Gender: Female Attending MD: Ld Dunn M.D. Room: [facility] ENDOSCOPY Note Status: Finalized Procedure: Colonoscopy Indications: Evaluation of abnormal imaging study (likely to be clinically significant), Evaluation of unexplainedGI bleeding presenting with Hematochezia. 77F admitted for cardiac arrest who developed hemochezia. CT AP 04/11/2023 with right-sided colonic lesion. Referring MD: Rhys Martinez M.D., Floyd Lee M.D. Providers: Ld Dunn M.D., Margie Garduno M.D. Medicines: Monitored Anesthesia Care Complications: No immediate complications. Estimated Blood Loss: Estimated blood loss was minimal. Procedure: Pre-Anesthesia Assessment: - Prior to the procedure, a History and Physicalwas performed, and patient medications, allergies and sensitivities were reviewed. The patient'stolerance of previous anesthesia was reviewed. - The alternatives, risks and benefits of the procedure were discussed at length with thepatient's daughter. The patient's proxy verbalizedunderstanding of the risks as well as the alternatives and wishedto proceed with the procedure. - Immediately prior to administration ofmedications, the patient was re-assessed for adequacy to receive sedatives. - The risks and benefits of the procedure and the sedation options and risks were discussed with the patient. All questions were answered and informed consent was obtained. The benefits, risks and alternatives of theprocedure and sedation were discussed and informed consentwas obtained. All questions were answered. Please referto the signed informed consent document in the medical record. The scope was passed under direct vision.The CF [id number] endoscope was introduced through the anus and advanced to the the cecum, identifiedby appendiceal orifice and ileocecal valve. The colonoscopy was performed with ease. The patient tolerated the procedure well. The quality of thebowel preparation was evaluated using the BBPS (BostonBowel Preparation Scale) with scores of: Right Colon = 2 (minor amount of residual staining, small fragmentsof stool and/or opaque liquid, but mucosa seen well), Transverse Colon = 3 (entire mucosa seen well withno residual staining, small fragments of stool oropaque liquid) and Left Colon = 3 (entire mucosa seen well with no residual staining, small fragments of stoolor opaque liquid). The total BBPS score equals 8. The quality of the bowel preparation was excellent. The quality of the bowel preparation was excellent. The bowel preparation used was polyethylene glycol(PEG) via split dose instruction. Findings: The perianal and digital rectal examinations were normal. A fungating, infiltrative and ulcerated non-obstructing large masswas found in the mid ascending colon (~86 cm from anus). The mass was partially circumferential. The mass measured five cm in length. Areaof abesent surface pattern on NBI with amorphous area suggestive of submucosal invasion. Biopsies were taken with a cold forceps for histology. Area 2 cm distal and along contralateral wall was successfully injected with 1 mL Spot (carbon black) for tattooing. Three sessile polyps were found in the proximal ascending colon and cecum. The polyps were 7 to 9 mm in size. These were not removedgiven colonoscopy for bleeding and large friable mass found distal to this area. Small internal hemorrhoids were found on retroflexion. Impression: - Likely malignant tumor in the mid ascending colon suggestive of submucosal invasion. Biopsied.Tattooed distal to the lesion. - Three 7 to 9 mm polyps in the proximal ascending colon and in the cecum. No removed. - Internal hemorrhoids. Recommendation: - Return patient to ICU for ongoing care. - Await pathology results. - Obtain CEA. - Consult colorectal surgery and oncology. - Remainder of recommendations per GI consultteam. Attending Participation: I was present and participated during the entire procedure, including non-thompson portions. Electronically signed by Ld Dunn MD Ld Dunn M.D. 04/15/2023 12:40:07 PM Number of Addenda: 0 Note Initiated On: 04/15/2023 9:23 AM Recognized by the [employer] Society [employer] for promoting quality in endoscopy Ld Dunn MD ENDOSCOPY PROCED URES Final Result from Last 3 Months or Most Recently Relevant to Health Maintenance Insurance MEDICARE [facility] MEDICARE [facility] MEDICARE SUPPLEMENT MEDICARE [facility] MEDICARE SUPPLEMENT Advance Directives For more information, please contact: [phone] Documents on File Type Date Recorded Patient Department Store Manager Expl anation Power of Fitness Technician 10/18/2023 7:03 PM Medic [place]. 2.pdf ADVANCE DIRECTIVE 05/15/2023 5:48 PM POWER OF PROCESS MAINTENANCE TECHNICIAN-MEDICAL ADVANCE DIRECTIVE 05/01/2023 12:31 PM RADHA R OF PROCESS MAINTENANCE TECHNICIAN-MEDICAL * Full Code (Latest Code Status on File) Date Activated Date Inactivated Comments 10/18/2023 9:27 PM 10/28/2023 5:09 PM * Full Code Date Activated Date Inactivated Comments 08/19/2023 3:48 AM 08/27/2023 3:46 PM * Full Code Date Activated Date Inactivated Comments 07/15/2023 1:14 AM 07/16/2023 6:33 PM * Full Code Date Activated Date Inactivated Comments 06/24/2023 6:15 AM 06/27/2023 4:52 AM * Full Code Date Activated Date Inactivated Comments 04/11/2023 2:19 PM 05/13/2023 6:56 PM Healthcare Agents on File Name Relationship Healthcare Agent Relationshi p Communication Thu Crystal Daughter Health Care Agent Care Teams Environmental Field Team Member Relationship Specialty Start Date End Date Faith Spicer MD [address] [place] [address] PCP - General Geriatric Medicine 03/03/24 Rasheed Pickard Jr., MD [address] [facility] [phone] [place] [address] Consulting Physician Colon and Rectal Surgery 06/01/23 Faith Streeter NP [address] [place] [address] Nurse Practitioner Hospice and Palliative Medicine 12/26/23 Jef Qureshi MD [address] [place] [address] Medical Oncology 03/03/24 Sena Matthews MD [address] [facility] [address] [address] Consulting Physician Neurology 05/10/24
--- OUTSIDE RECORDS SUMMARY | 2024-06-06 12:56 | XMS_ITS | Clinical Summary ---
Author Organization [email or web address] Address [address] [place] [address] Care Team Providers Care Needle Board Repairer Name Role Phone Christine Ortiz COOK TACO-PEST CONTROL APPLICATOR Primary Care Provider Source Comments [email or web address] Affiliates and Associated Physician Practices is amultiple site organization consisting of ambulatory clinics and hospital sitesin [place], [place], [place] and [place]. This disclosure is being madepursuant to the Care Everywhere program and may not contain all information available regarding this patient. Last updated 18.[email or web address] Allergies Active Allergy Reactions Criticality Noted Date [...] 100 tablet 4 12/16/2023 Active nystatin (Mycostatin) 529135 UNIT/GM powder Apply to affected area 2 [...] Arteriosclerosis of coronary artery 05/07/2013 Overview (02/26/2024): CRNRJose D MALIN VSSL Paroxysmal atrial fibrillation 05/07/2013 Overview (02/26/2024): [...] 01/27/2019 02/26/2024 Weak arterial pulse 01/27/2019 02/26/20 24 Chronic anticoagulation 07/28/201710/2023 Encounters Date Type Department Care Team Description 04/20/2024 Refill [facility] [address] [place] [address], [place] [address] Faith Spicer MD Refill Request from Last 3 Months Immunizations Name Administration Dates Next Due COVID PFIZER BIVALENT 12Y+ 30mcg/0.3ML 2 Covid Pfizer primary monoval ent 12+ yr [...] Mass Index 25.24 11/08/2023 11:43 AM CDT Plan of Treatment Upcoming Encounters Date Type Department Care Team (Late st Contact Info) Description 2024 11:00 AM CLINICAL STUDIES SPECIALIST Office Visit [facility] [address], [place] [address] Christine Ortiz, COOK TACO-PEST CONTROL APPLICATOR [address] [phone] Health Maintenance Due Date Last Done Comments BONE DENSITY TESTING 1945 MEDICARE AWV 12 MONTHS 1945 HEPATITIS C SCREENING 06/20/1964 Respiratory Syncytial Virus (RSV) Vaccine Pt: or over 60 yrs (1 - 1-dose 75+ series) 2021 COVID-19 VACCINE ( season) 2023 01/20/2022, 03/02/2021, 07/13/2020, Additional history exists INFLUENZA VACCINE (#1) 2023 , 02/01/2021, 01/20/2020, Additional history exists DEPRESSION SCREENING 04/21/2024 DTAP/TDAP/TD VACCINES (2 - Td or Tdap) 02/19/2029 02/19/2019 PNEUMOCOCCAL VACCINE 50+ Completed 02/12/2019, 04/21 ZOSTER VACCINE Completed 05/07/2019, 02/19/2019 HEPATITIS B VACCINE Aged Out No longe r eligible based on patient's age to complete this topic HIB VACCINE Aged Out No longer eligi ble based on patient's age to complete this topic HPV VACCINE Aged Out No longer eligi ble based on patient's age to complete this topic MENINGOCOCCAL (Group B) VACCINE Aged Out No longer eligible based on patient's age to complete this topic MENINGOCOCCAL VACCINE Aged Out No jake adam eligible based on patient's age to complete this topic Advance Directives * Full Code (Latest Code Status on File) Date Activated Date Inactivated Comments 09/16/2017 6:24 PM 09/19/2017 4:15 PM Care Teams Needle Board Repairer Relationship Specialty Start Date End Date Christine Ortiz APRN-PEST CONTROL APPLICATOR [address] [phone] PCP - General Nurse Practitioner 01/12/24
--- OUTSIDE RECORDS SUMMARY | 2024-06-06 12:56 | XMS_ITS | Referral Summary ---
Author Organization [facility] [address] Address [address] [place] [address] Care Team Providers Care Geothermal Electrical Engineer Name Role Phone Neeraj Izaguirre MD, Rasheed Freedman Unavailable [phone] Faith Streeter NAPHTHALENE STILL OPERATOR Unavailable Jef Qureshi MD Unavailable Faith Spicer MD Primary Care Provider [phone] Sena Matthews MD Unavailable [phone] Encounters Date Type Department Care Team Description 06/04/2024 1:00 PM BEHAVIORAL HEALTH CARE COORDINATOR [place] [facility] [address] [place] [address] Francisca Senior NP Arrived 05/14/2024 9:00 AM BEHAVIORAL HEALTH CARE COORDINATOR Residential [place] [facility] [address] [place] [address] Francisca Senior NP Vascular dementia with other behavioral disturbance, unspecified dementia severity (HCC) (Primary Dx); Urinary tract infection without hematuria, site unspecified; CVA, old, hemiparesis (CMS/HCC) (HCC); Palliative care encounter 05/12/2024 Documentation [facility] [address] [place] [address] Francisca Senior NP 05/12/[address] [address] Beti Granados RN 05/11/[address] [address] Beti Granados RN 05/10/[address] [address] Beti Granados RN 05/07/2024 Documentation [facility] [address] [place] [address] Francisca Senior NP 05/07/2024 10:00 AM BEHAVIORAL HEALTH CARE COORDINATOR Office Visit [facility] Stroke [facility] [address] [place] [phone] Sena Matthews MD History of ischemic stroke (Primary Dx); Moderate dementia with agitation, unspecified dementia type (HCC); Spasticity due to old stroke 03/19/2024 1:00 PM BEHAVIORAL HEALTH CARE COORDINATOR Residential [place] [facility] [address] [facility] [address] [place] [phone] Francisca Senior NP CVA, old, hemiparesis (CMS/HCC) (HCC) (Primary Dx); Coronary artery disease involving [place] heart, unspecified vessel or lesion type, unspecified whether angina present; Presence of ileostomy (CMS/HCC) (HCC); Agitation; Paroxysmal atrial fibrillation (CMS/HCC) (HCC) from Last 3 Months Allergies Active Allergy [...] assistance with ADLs, needs wheelchair when outside. [facility] clinic increased her zyprexa around 10/09 [...] decline and acute renal failure, cont GOC. 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 Interrogation normal. No episodes of VFib/Vtach. Patient [...] statin, metoprolol - CTM Paroxysmal atrial fibrillation ([facility]/HCC) 014 Overview (07/25/2016): ATRIAL FIBRILLATION Assessment & [...] S/P ablation of atrial fibrillation Atrial flutter ([facility]) 05/07/2013 Overview (07/26/2016): ATRIAL FLUTTER Assessment & Plan (08/18/2023 11:41 PM CDT): - Cont metoprolol Immunizations Immunization Administration Dates Next Due Influenza, Quadrivalent, Split, Intramuscular ,02/17/2014 Influenza, Quadrivalent, Spl it, Preservative Free, Intramuscular 02/12/2019 Influenza, Trivalent, High D ose, Split, Preservative Free, Intramuscular 02/11/2018,04/25/2015 Influenza, Trivalent, IM (MDV) 02/18/2017,2011 Pneumococcal Conjugate PCV 13 02/12/2019 Pneumococcal Polysaccharide PPV23 05/05/2012 Tdap 02/19/2019 ZOSTER Recombinant 05/07/2019,02/19/2019 Social History Tobacco Use Types Packs/Day Years Used Date Smoking Tobacco: Former Cigarettes 3 15 1 967 - 1982 Smokeless Tobacco: Former Quit: 1981 Tobacco Cessation:Counseling Given: Not Answered Alcohol Use Standard Drinks/Week Comments Yes 0 (1 standard drink = 0.6 oz pur e alcohol) [facility] Utilities Answer Date Recorded In the past 12 months has [employer], [employer], oil, or water [employer] threatened to shut off services in your [...] answer 10/20/2023 How often do you attend up health system or uatsdin services? Patient unable to answer 10/20/2023 Do you belong to any clubs o r organizations such as sikh groups, unions, fraternal or athletic groups, or [...] place to sleep or slept in a nursing home (including now)? Patient unable to answer 08/21/2023 [...] any time in the past 12 m ont, were you homeless or living in a nursing home (including now)? 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) Not on file Not on file Not on file Last Filed Vital Signs Vital Sign Reading Time Taken Comments Blood Pressure 96/66 05/07/2024 9:56 AM BEHAVIORAL HEALTH CARE COORDINATOR Pulse 90 05/07/2024 9:56 AM BEHAVIORAL HEALTH CARE COORDINATOR Temperature 36.4 C (97.6 F) 03/03/2024 3:22 PM BEHAVIORAL HEALTH CARE COORDINATOR Respiratory Rate 18 03/03/2024 3:22 PM BEHAVIORAL HEALTH CARE COORDINATOR Oxygen Saturation 96% 03/03/2024 3:22 PM BEHAVIORAL HEALTH CARE COORDINATOR Inhaled Oxygen Concentration - - Weight 65.8 kg (145 lb) 05/07/2024 9:56 AM BEHAVIORAL HEALTH CARE COORDINATOR Height 165.1 cm (5' 5 ) 05/07/2024 9:56 AM BEHAVIORAL HEALTH CARE COORDINATOR Body Mass Index 24.13 05/07/2024 9:56 AM BEHAVIORAL HEALTH CARE COORDINATOR Plan of Treatment Not on file Medical Devices Implanted Type Area Butt Welder Device Identifier Shelf Expiration Date Model / Serial / Lot [employer] Medical Betsy Angio-Seal Vip 6fr Closere Device [id number] - [id number] - [id number] Implanted:Qty: 1 on 05/02/2023 by Isaac Garcia MD PhD at [facility] Collagen Right: Femoral [employer] Betsy 09/30/2023 [id number] / [id number] / [id number] [employer] Stent Coronary De Rx Cocr Ors Msn 2.5x40mm [id number] - [id number] - [id number] Implanted:Qty: 1 on 05/02/2023 by Isaac Garcia MD PhD at [facility] Stent [employer] 12/14/2024 [id number] / [id number] / [id number] Pacemaker Left: Chest [employer] Trufill Glue 1gm [facility] [id number] - [id number] Implanted:Qty: 1 on 06/24/2023 at [facility] [employer] 04/20/2025 [id number] / / [id number] Procedures Procedure Name Priority Date/Time Associated Diagnosis Comments COLONOSCOPY 04/15/2023 9:23 AM BEHAVIORAL HEALTH CARE COORDINATOR from Last 3 Months or Most Recently Relevant to Health Maintenance Results * COLONOSCOPY (04/15/2023 9:23 AM BEHAVIORAL HEALTH CARE COORDINATOR) Anatomical Region Laterality Modality Other Narrative Procedure Note Ld Dunn MD - 04/15/2023 9:23 AM [facility] Patient Name: Shantelle Crsytal Procedure Date: 04/15/2023 9:23 AM Date of : 1945 Admit Type: Inpatient Age: 77 Gender: Female Attending MD: Ld Dunn M.D. Room: [facility] ENDOSCOPY Note Status: Finalized Procedure: Colonoscopy Indications: [...] The scope was passed under direct vision.The [id number] endoscope was introduced through the anus and [...] On: 04/15/2023 9:23 AM Recognized by the [place] [employer] for promoting quality in endoscopy us Ld Dunn MD ENDOSCOPY PROCED URES Final Result from Last 3 Months or Most Recently Relevant to Health Maintenance Insurance MEDICARE [facility] MEDICARE BLUE CROSS MEDICARE SUPPLEMENT MEDICARE [facility] MEDICARE SUPPLEMENT Advance Directives For more information, please contact: [phone] Documents on File Type Date Recorded Patient Digital Editor Expl anation Power of Pension Examiner 10/18/2023 7:03 PM Medic alXIAO. 2.pdf ADVANCE DIRECTIVE 05/15/2023 5:48 PM POWER OF ELECTRICIAN SUPERVISOR AIRPLANE-MEDICAL ADVANCE DIRECTIVE 05/01/2023 12:31 PM RADHA R OF ELECTRICIAN SUPERVISOR AIRPLANE-MEDICAL * Full Code (Latest Code Status on [...] Crystal Daughter Health Care Agent Care Teams Geothermal Electrical Engineer Relationship Specialty Start Date End Date Faith Spicer MD [address] [facility] [place] [address] PCP - General Geriatric Medicine 03/03/24 Rasheed Pickard Jr., MD [address] [facility] [phone] [place] [address] Consulting Physician Colon and Rectal Surgery 06/01/23 Faith Streeter NP [address] [place] [address] Nurse Practitioner Hospice and Palliative Medicine 12/26/23 Jef Qureshi MD [address] [place] [address] Medical Oncology 03/03/24 Sena Matthews MD [address] [facility] [place], [address] [address] Consulting Physician Neurology 05/10/24
--- OUTSIDE RECORDS SUMMARY | 2024-06-06 12:56 | XMS_ITS | Clinical Summary ---
Author Organization [facility] Address [address] [place] [address] Care Team Providers Care Supervisor Coremaker Name Role Phone Rhys Martinez MD Primary Care Provider [phone] Allergies No known active allergies Medications dilTIAZem CD (CARDIZEM CD) 120 MG 24 hr capsule Take 120 mg by mouth daily. Active apixaban (ELIQUIS) 5 MG tablet Take 5 mg by mouth 2 (two) times daily. Active furosemide (LASIX) 20 MG tablet Take 20 mg by mouth daily. Active loratadine (CLARITIN) 10 MG tablet Take 10 mg by mouth as needed. Active metoprolol succinate ER (TOPROL-XL) 50 MG 24 hr tablet Take 100 mg by mouth daily. Active lisinopril (PRINIVIL) 10 MG tablet Take 10 mg by mouth daily. Active calcium carb-cholecalci ferol (CALTRATE+D) 600-10 MG-MCG Tab tablet 1 tablet daily. Active magnesium oxide (MAG-OX) 400 (240 Mg) MG tablet Take 400 mg by mouth 2 (two) times daily. Active dofetilide (TIKOSYN) 500 MCG Cap capsule Take 1 capsule by mouth daily. 03/01/2022 Active Social History Tobacco Use Types Packs/Day Years Used Date Smoking Tobacco: Former Cigarettes Smokeless Tobacco: Never Tobacco Cessation:Counseling Given: Not Answered Alcohol Use Standard Drinks/Week Comments Yes 46.7 (1 standard drink = 0.6 oz pure alcohol) Comments No Sex and Gender Information Value Date Recorded Sex Assigned at Not on file Legal Sex Female 10:01 PM CDT Gender Identity Not on file Sexual Orientation Not on file Last Filed Vital Signs Vital Sign Reading Time Taken Comments Blood Pressure 125/68 06/17/2022 8:02 AM INSIDE TESTER Pulse 72 06/17/2022 8:02 AM INSIDE TESTER Temperature 36.2 C (97.2 F) 06/17/2022 6:49 AM INSIDE TESTER Respiratory Rate 20 06/17/2022 6:49 AM INSIDE TESTER Oxygen Saturation 98% 06/17/2022 8:02 AM INSIDE TESTER Inhaled Oxygen Concentration - - Weight 74.8 kg (165 lb) 06/17/2022 6:49 AM INSIDE TESTER Height 165.1 cm (5' 5 ) 06/17/2022 6:49 AM INSIDE TESTER Body Mass Index 27.46 06/17/2022 6:49 AM INSIDE TESTER Plan of Treatment Health Maintenance Due Date Last Done Comments Hepatitis C 1963 Annual Medicare Wellness Visit 06/26/2011 Dexa Scan (General) 06/26/2011 RSV Immunization or 60+ Years (1 - 1-dose 75+ series) 2021 COVID-19 Vaccine ( - season) 2023 01/20/2022, 03/02/2021, 07/13/2020, Additional history exists Influenza Adult (#1) 2024 01/20/2020, 02/12/2019, 02/11/2018, Additional history exists DTaP, Tdap and Td Vaccines (2 - Td or Tdap) 02/19/2029 02/19/2019 Pneumococcal Vaccine: 65+ Years Completed 02/12/2019, 05/05/2012 Zoster Vaccines Completed 05/07/2019, 02/19/2019 Meningococcal B Vaccine Aged Out No l onger eligible based on patient's age to complete this topic Meningococcal Vaccine Aged Out No jake adam eligible based on patient's age to complete this topic RSV Immunizations Under 20 Months Aged Out No longer eligible based on patient's age to complete this topic Medical Devices Implanted Type Area Reefer Engineer Device Identifier Shelf Expiration Date Model / Serial / Lot Tecnis 1 Piece Iol Simplicity Implanted:Qty: 1 on 05/13/2022 by Dandy Vyas MD at [facility] [id number] 02/16/2025 / [id number] / Tecnis Iol Implanted:Qty: 1 on 06/17/2022 by Dandy Vyas MD at [facility] Right: Eye 11/09/2024 / [id number] / Insurance MEDICARE [facility] Care Teams Supervisor Coremaker Relationship Specialty Start Date End Date Rhys Martinez MD [address] [place] [phone] PCP - General INTERNAL MEDICINE 05/13/22
--- OUTSIDE RECORDS SUMMARY | 2024-06-06 12:56 | XMS_ITS | Patient Health Summary ---
Author Organization [facility] Address [address] [place] [address] Care Team Providers Care Work Environment Safety Inspector Name Role Phone Christine Ortiz Elle BROOKS-NUCLEAR TEST TECHNICIAN Primary Care Provider Note from [facility],non-owned Affiliates and Associated Physician Practices is amultiple site organization consisting of ambulatory clinics and hospital sitesin [place], [place], [place] and [place]. This disclosure is being madepursuant to the Care Everywhere program and may not contain all information available regarding this patient. Last updated 18.[facility] Urge Allergies * Adhesive Sensitivity(Rash,Eye Redness) -Medium Criticality * Simvastatin(Psychiatric) -Medium Criticality Medications * Be aware that medications may not be up to date on this document. Alwaysverify current medications with the patient. * acetaminophen (TYLENOL) 325 MG tablet(Started 01/14/2018) Take 2 tablets by mouth every 6 hours as needed for Pain Maximum allowable Acetaminophen amount = 4Grams (4000 mg) / 24 hours. * amiodarone (Cordarone) 200 MG tablet(Started 12/16/2023) Take 1 (one) tablet by mouth once daily 5 refills by 12/15/2024 * aspirin (Aspirin) 81 MG chew tablet(Started 12/16/2023) Take 1 (one) tablet by mouth once daily 4 refills by 12/15/2024 * nystatin (Mycostatin) 335062 UNIT/GM powder(Started 12/16/2023) Apply to affected area 2 times daily 5 refills by 12/15/2024 * escitalopram (Lexapro) 20 MG tablet(Started 12/16/2023) Take 1 (one) tablet by mouth once daily 4 refills by 12/15/2024 * atorvastatin (Lipitor) 20 MG tablet(Started 12/16/2023) Take 1 (one) tablet by mouth once daily 4 refills by 12/15/2024 * psyllium (Metamucil) 58.6 % powder(Started 12/16/2023) Take 1 (one) packet by mouth 2 times daily 5 refills by 12/15/2024 * traZODone (Desyrel) 50 MG tablet(Started 12/16/2023) Take 1 (one) tablet by mouth at bedtime 4 refills by 12/15/2024 * Cholecalciferol (Vitamin D3) 25 MCG (1000 UT)(Started 12/16/2023) Take 1 (one) capsule by mouth once daily 5 refills by 12/15/2024 * metoprolol succinate XL 24hr (Toprol XL) 50 MG tablet(Started 01/13/2024) TAKE 1 TABLET BY MOUTH EVERY DAY 1 refill by 01/12/2025 * OLANZapine (ZyPREXA) 2.5 MG tablet(Started 02/20/2024) Take 1 (one) tablet by mouth once daily 4 refills by 02/19/2025 * levETIRAcetam (Keppra) 500 MG tablet(Started 04/22/2024) TAKE 1 (ONE) TABLET BY MOUTH 2 TIMES DAILY 3 refills by 04/22/2025 Active Problems Problem Noted Date Diagnosed Date [...] Asthma 07/13/2015 Syncope 05/29/2015 Essential hypertension 02/21/2015 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 (FLUZONE HIGH-DOSE QUADRIVALENT; 65Y+), 0.7 ML (HD-IIV4)(Given 01/20/2022, 02/01/2021) * INFLUENZA VACCINE, HIGH-DOSE, TRIV. (FLUZONE HIGH-DOSE TRIVALENT; 65Y+) (HD-IIV3)(Given 02/11/2018, 04/25/2015) * INFLUENZA VACCINE, QUADR. (AFLURIA, FLUZONE QUADRIVALENT; 6MO+) (IIV4)(Given 01/20/2020, 02/17/2014) * INFLUENZA VACCINE, QUADR. (FLUZONE; FLULAVAL; FLUARIX; AFLURIA QUADRIVALENT; 6MO+), 0.5 ML (IIV4)(Given 02/12/2019) * PNEUMOCOCCAL PPV VACCINE(Given 05/05/2012) * Pneumococcal Pcv13 Conj(Given 02/12/2019) * TDAP, HISTORIC VACCINE(Given 02/19/2019) * Zoster Hzv Vacc Recombinant Inj Im(Given 05/07/2019, 02/19/2019) Social History Tobacco Use Types Packs/Day Years [...] Mass Index 25.24 11/08/2023 11:43 AM CDT Procedures * VITAMIN B12(Performed 02/20/2024) Performed for Mild dementia, unspecified dementia type, unspecified whether behavioral, psychotic, or mood disturbance or anxiety (HCC) * T4 FREE(Performed 02/20/2024) Performed for Chronic atrial fibrillation (HCC), Mild dementia, unspecified dementia type, unspecified whether behavioral, psychotic, or mood disturbance or anxiety (HCC) * TSH(Performed 02/20/2024) Performed for Chronic atrial fibrillation (HCC), Mild dementia, unspecified dementia type, unspecified whether behavioral, psychotic, or mood disturbance or anxiety (HCC) * COMPREHENSIVE METABOLIC PANEL(Performed 02/20/2024) Performed for Chronic atrial fibrillation (HCC), Mild dementia, unspecified dementia type, unspecified whether behavioral, psychotic, or mood disturbance or anxiety (HCC) * CBC W AUTO DIFFERENTIAL(Performed 02/20/2024) Performed for Chronic atrial fibrillation (HCC), Mild dementia, unspecified dementia type, unspecified whether behavioral, psychotic, or mood disturbance or anxiety (HCC) * CT HEAD WO CONTRAST(Performed 11/08/2023) Performed for Fall, initial encounter * XR ELBOW RIGHT 3VW OR MORE(Performed 11/08/2023) Performed for Fall, initial encounter * XR SHOULDER LEFT 2VW OR MORE(Performed 11/08/2023) Performed for Fall, initial encounter * CARDIAC EKG ORDER(Performed 08/18/2023) * EKG 12-LEAD(Performed 08/17/2023) Performed for Fall, initial encounter * CT HEAD CERV SPINE WO CONTRAST(Performed 08/17/2023) Performed for Fall, initial encounter * XR PELVIS W LEFT HIP 2VW(Performed 08/17/2023) Performed for Fall, initial encounter * XR CHEST 1VW PORTABLE(Performed 08/17/2023) Performed for Fall, initial encounter * CARDIAC PROCEDURE ORDER(Performed 01/16/2018) * CARDIAC RHYTHM STRIP ORDER(Performed 09/25/2017) * CARDIAC CATH CONSULT(Performed 09/19/2017) * EKG 12-LEAD(Performed 09/19/2017) Performed for Atrial fibrillation with RVR (HCC) * MAGNESIUM BLOOD(Performed 09/19/2017) * COMPREHENSIVE METABOLIC PANEL(Performed 09/19/2017) * CBC W AUTO DIFFERENTIAL(Performed 09/19/2017) * MAGNESIUM BLOOD(Performed 09/18/2017) * COMPREHENSIVE METABOLIC PANEL(Performed 09/18/2017) * CBC W AUTO DIFFERENTIAL(Performed 09/18/2017) * MAGNESIUM BLOOD(Performed 09/17/2017) * XR CHEST 1VW PORTABLE(Performed 09/17/2017) Performed for Atrial fibrillation with RVR (HCC) * EKG 12-LEAD(Performed 09/17/2017) Performed for Atrial fibrillation with RVR (HCC) * TROPONIN I(Performed 09/17/2017) * TROPONIN I(Performed 09/17/2017) * TROPONIN I(Performed 09/16/2017) * NT-PRO BNP(Performed 09/16/2017) * COMPREHENSIVE METABOLIC PANEL(Performed 09/16/2017) * CBC W AUTO DIFFERENTIAL(Performed 09/16/2017) Results * CBC W/ DIFFERENTIAL (02/20/2024 11:50 AM CDT) Only the most recent of4 resultswithin the time period is included. WBC 5.5 4.0 - 10.7 x10E9/L 02/20/2024 12:29 PM [facility] RBC Count 4.47 3.90 - 5.20 x10E12/L 02/20/2024 12:29 PM [facility] Hemoglobin 13.4 11.9 - 15.8 g/dL 02/20/2024 12:29 PM [facility] Hematocrit 41.0 34.8 - 46.1 % 02/20/2024 12:29 PM [facility] MCV 91.7 80.0 - 98.0 fL 02/20/2024 12:29 PM [facility] MCH 30.0 26.7 - 33.6 pg 02/20/2024 12:29 PM [facility] MCHC 32.7 31.7 - 36.3 g/dL 02/20/2024 12:29 PM [facility] RDW-CV 13.2 11.3 - 14.8 % 02/20/2024 12:29 PM [facility] Platelet Count 224 150 - 420 x10E9/L 02/20/2024 12:29 PM [facility] MPV 9.5 7.8 - 11.4 fL 02/20/2024 12:29 PM [facility] Neutrophil % 64.9 41.0 - 74.0 % 02/20/2024 12:29 PM [facility] Lymphocyte % 20.8 17.0 - 47.0 % 02/20/2024 12:29 PM [facility] Monocyte % 8.4 3.0 - 11.0 % 02/20/2024 12:29 PM [facility] Eosinophil % 4.8 0.0 - 7.0 % 02/20/2024 12:29 PM [facility] Basophil % 0.7 0.0 - 1.6 % 02/20/2024 12:29 PM [facility] Immature Granulocytes % 0.4 0.0 - 1.0 % 02/20/2024 12:29 PM [facility] Neutrophil Absolute 3.55 1.60 - 7.50 x10E9/L 02/20/2024 12:29 PM [facility] Lymphocyte Absolute 1.14 1.00 - 4.40 x10E9/L 02/20/2024 12:29 PM [facility] Monocyte Absolute 0.46 0.15 - 1.00 x10E9/L 02/20/2024 12:29 PM [facility] Eosinophil Absolute 0.26 0.00 - 0.60 x10E9/L 02/20/2024 12:29 PM [facility] Basophil Absolute 0.04 0.00 - 0.13 x10E9/L 02/20/2024 12:29 PM [facility] Blood BLOOD SPECIMEN / Unknown Lab Venipuncture / Unknown 02/20/2024 11:50 AM CDT 02/20/2024 12:21 PM CDT Christine Ortiz SCHOOL SUPERVISOR-NUCLEAR TEST TECHNICIAN LAB - HEMATOLOG Y ORDERABLES Performing Organization Address [facility]/State/[facility] Co de Phone Number [facility] [address] [place] [id number], [facility] [phone] * (ABNORMAL) COMPREHENSIVE METABOLIC PANEL (02/20/2024 11:50 AM CDT) Only the most recent of4 resultswithin the time period is included. BUN 18 7 - 26 mg/dL 02/20/2024 12:54 PM [facility] Creatinine 0.99(H) 0.56 - 0.96 mg/dL 02/20/2024 12:54 PM [facility] Sodium 135(L) 136 - 145 mmol/L 02/20/2024 12:54 PM [facility] Potassium 4.6(H) 3.5 - 4.5 mmol/L 02/20/2024 12:54 PM [facility] Chloride 109(H) 98 - 107 mmol/L 02/20/2024 12:54 PM [facility] CO2 20(L) 22 - 29 mmol/L 02/20/2024 12:54 PM [facility] Glucose 87 70 - 99 mg/dL 02/20/2024 12:54 PM [facility] Calcium 9.7 8.4 - 10.2 mg/dL 02/20/2024 12:54 PM [facility] Protein Total 7.0 6.0 - 8.3 g/dL 02/20/2024 12:54 PM [facility] Albumin 3.9 3.4 - 5.0 g/dL 02/20/2024 12:54 PM [facility] Bilirubin Total 0.4 0.2 - 1.2 mg/dL 02/20/2024 12:54 PM [facility] Alkaline Phosphatase 73 40 - 150 U/L 02/20/2024 12:54 PM [facility] ALT 21 5 - 55 U/L 02/20/2024 12:54 PM [facility] AST 22 5 - 34 U/L 02/20/2024 12:54 PM [facility] Anion Gap 6 6 - 16 02/20/2024 12:54 PM [facility] BUN/Creatinine Ratio 18 7 - 23 02/20/2024 12:54 PM [facility] Osmolality Calculated 281 275 - 295 mOsm/kg 02/20/2024 12:54 PM [facility] Albumin/Globulin Ratio 1.3 1.1 - 2.3 02/20/2024 12:54 PM [facility] eGFR by CKD-EPI 59(L) >=90 mL/min/1.7 3 m2 02/20/2024 12:54 PM [facility] Blood BLOOD SPECIMEN / Unknown Lab Venipuncture / Unknown 02/20/2024 11:50 AM T 02/20/2024 12:21 PM CDT Christine [facility]iz [facility] - CHEMISTRY ORDERABLES Performing Organization Address City/[facility]/ZIP Co de Phone Number [address] [address], [place] [phone] * VITAMIN B12 (02/20/2024 11:50 AM CDT) Vitamin B12 694 213 - 816 pg/mL 02/20/2024 1:38 PM CDT [facility] Blood BLOOD SPECIMEN / Unknown Lab Venipuncture / Unknown 02/20/2024 11:50 AM CDT 02/20/2024 12:21 PM CDT [facility] LAB - CHEMISTRY ORDERABLES Performing Organization Address [facility]/ZIP Co de Phone Number [address] [address], [place] [phone] * TSH (02/20/2024 11:50 AM CDT) TSH 0.708 0.350 - 4.940 uIU/mL 02/20/2024 1:38 PM CDT [facility] Blood BLOOD SPECIMEN / Unknown Lab Venipuncture / Unknown 02/20/2024 11:50 AM CDT 02/20/2024 12:21 PM CDT Christine [facility] LAB - CHEMISTRY ORDERABLES Performing Organization Address City/[facility]/ZIP Co de Phone Number [address] [address], [place] [phone] * T4 FREE (02/20/2024 11:50 AM CDT) T4 Free 1.1 0.7 - 1.5 ng/dL 02/20/2024 1:38 PM CDT [facility] Blood BLOOD SPECIMEN / Unknown Lab Venipuncture / Unknown 02/20/2024 11:50 AM CDT 02/20/2024 12:21 PM CDT Christine Ortiz SCHOOL SUPERVISOR-NUCLEAR TEST TECHNICIAN LAB - CHEMISTRY ORDERABLES [facility] [address] [place] [address], [facility] [phone] * CT HEAD WO CONTRAST (11/08/2023 3:10 PM CDT) Anatomical Region Laterality Modality Head Computed Tomogra phy 11/08/2023 3:28 PM CDT Impressions 11/08/2023 3:42 PM CDT IMPRESSION: 1. No acute process. 2. Chronic findings as discussed above. > Interpreting Provider: Raulito Newby MD on 11/08/2023 3:42 PM Narrative 11/08/2023 3:42 PM CDT PROCEDURE: CT HEAD WO CONTRAST DATE/TIME OF EXAM: 11/08/2023 3:11 PM CLINICAL INFORMATION: None relevant/not provided if blank. Indication: W19.XXXA: Unspecified fall, initial encounter CT OF THE HEAD WITHOUT CONTRAST HISTORY: W19.XXXA: Unspecified fall, initial encounter COMPARISON: CT head without contrast, 08/17/2023 TECHNIQUE: CT of the head was performed without contrast according to standard protocol. This examination was subjected to Viz. ICH. FINDINGS: No acute intra- or extra-axial hemorrhage is identified. The previously seen hemorrhage in the right middle cranial fossa is no longer seen. The large ischemic infarction of right MCA territory is similar in size, but is more hypodense than before and is further evolved. Ex vacuo dilatation of right lateral ventricle is similar to the prior study. The small lacunar infarction of inferior left putamen is similar to the previous examination. No interval infarction is identified. The basilar cisterns are patent. No mass effect or midline shift is seen. The ugalde-white matter differentiation otherwise appears normal. The extra-axial area of partially calcified density overlying the left parietal convexity (series 4, images 41/54 and series 3, images 20-27) persists and appears a slightly thinner than before with the thickest portion measuring 7.6 mm on the current the study is compared to 9 mm previously. This may represent a partially calcified subdural hematoma versus a partially calcified thickened dura. The ventricles are stable in size, shape, and morphology. There is no hydrocephalus. Periventricular white matter hypoattenuation is nonspecific, but can be seen in the setting of chronic senescent changes. Other than bilateral cataract extractions, the orbital contents are normal and symmetric. The paranasal sinuses, and mastoid air cells are clear . No acute fracture is identified. There is no visible scalp swelling/hematoma. Procedure Note Raulito Newby MD - 11/08/2023 PROCEDURE: CT HEAD WO CONTRAST DATE/TIME OF EXAM: 11/08/2023 3:11 PM CLINICAL INFORMATION: None relevant/not provided if blank. Indication: W19.XXXA: Unspecified fall, initial encounter CT OF THE HEAD WITHOUT CONTRAST HISTORY: W19.XXXA: Unspecified fall, initial encounter COMPARISON: CT head without contrast, 08/17/2023 TECHNIQUE: CT of the head was performed without contrast according to standard protocol. This examination was subjected to Viz. ICH. FINDINGS: No acute intra- or extra-axial hemorrhage is identified. The previously seen hemorrhage in the right middle cranial fossa is no longer seen. The large ischemic infarction of right MCA territory is similar in size, butis more hypodense than before and is further evolved. Ex vacuo dilatationof right lateral ventricle is similar to the prior study. The small lacunar infarction of inferior left putamen is similar to the previousexamination. No interval infarction is identified. The basilar cisterns are patent. No mass effect or midline shift isseen. The ugalde-white matter differentiation otherwise appears normal. The extra-axial area of partially calcified density overlying the left parietal convexity (series 4, images 41/54 and series 3, images 20-27) persists and appears a slightly thinner than before with the thickest portion measuring 7.6 mm on the current the study is compared to 9 mm previously. This may represent a partially calcified subdural hematoma versus a partially calcified thickened dura. The ventricles are stable in size, shape, and morphology. There is no hydrocephalus. Periventricular white matter hypoattenuation isnonspecific, but can be seen in the setting of chronic senescent changes. Other than bilateral cataract extractions, the orbital contents arenormal and symmetric. The paranasal sinuses, and mastoid air cells are clear .No acute fracture is identified. There is no visible scalpswelling/hematoma. IMPRESSION: 1. No acute process. 2. Chronic findings as discussed above. > Interpreting Provider: Raulito Newby MD on 11/08/2023 3:[address] ORDERABLES * XR ELBOW RIGHT 3VW OR MORE (11/08/2023 12:17 PM CDT) Anatomical Region Laterality Modality Upper Extremity Radiographic Sakshi ging 11/08/2023 12:4 6 PM CDT Narrative 11/08/2023 12:48 PM CDT PROCEDURE: XR ELBOW RIGHT 3VW OR MORE DATE/TIME OF EXAM: 11/08/2023 12:17 PM CLINICAL INFORMATION: None relevant/not provided if blank. Indication: W19.XXXA: Unspecified fall, initial encounter XR ELBOW RIGHT 3VW OR MORE, AP, OBLIQUE AND LATERAL VIEWS. HISTORY: W19.XXXA: Unspecified fall, initial encounter COMPARISON: None FINDINGS/IMPRESSION: 1. 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 2. No fracture, dislocation, suspicious intrinsic bony lesions, enthesopathy, other significant arthritic changes, or suspicious soft tissue abnormalities are identified. 3. There is no visible joint effusion. > Interpreting Provider: Raulito Newby MD on 11/08/2023 12:48 PM Procedure Note Raulito Newby MD - 11/08/2023 PROCEDURE: XR ELBOW RIGHT 3VW OR MORE DATE/TIME OF EXAM: 11/08/2023 12:17 PM CLINICAL INFORMATION: None relevant/not provided if blank. Indication: W19.XXXA: Unspecified fall, initial encounter XR ELBOW RIGHT 3VW OR MORE, AP, OBLIQUE AND LATERAL VIEWS. HISTORY: W19.XXXA: Unspecified fall, initial encounter COMPARISON: None FINDINGS/IMPRESSION: 1. 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 2. No fracture, dislocation, suspicious intrinsic bony lesions, enthesopathy, other significant arthritic changes, or suspicious soft tissue abnormalities are identified. 3. There is no visible joint effusion. > Interpreting Provider: Raulito Newby MD on 11/08/2023 12:48 PM [facility] ORDERABLES * XR LEFT SHOULDER 2 PLUS VIEWS/TRAUMA (11/08/2023 12:17 PM CDT) Anatomical Region Laterality Modality Upper Extremity Radiographic Sakshi ging 11/08/2023 1:37 PM CDT Impressions 11/08/2023 1:43 PM CDT IMPRESSION: Unremarkable study. > Interpreting Provider: Raulito Newby MD on 11/08/2023 1:43 PM Narrative 11/08/2023 1:43 PM CDT PROCEDURE: XR SHOULDER LEFT 2VW OR MORE DATE/TIME OF EXAM: 11/08/2023 12:17 PM CLINICAL INFORMATION: None relevant/not provided if blank. Indication: W19.XXXA: Unspecified fall, initial encounter XR SHOULDER LEFT 2VW OR MORE HISTORY: W19.XXXA: Unspecified fall, initial encounter COMPARISON: None. FINDINGS: There are no fracture, dislocation, suspicious intrinsic bony lesions, acromioclavicular joint separation, significant arthritic changes, or suspicious soft tissue abnormalities. The height of subacromial space is normal. A left dual-lead transvenous pacemaker is partially imaged. The imaged ribs and imaged portion of the lung are unremarkable. Procedure Note Raulito eNwby MD - 11/08/2023 PROCEDURE: XR SHOULDER LEFT 2VW OR MORE DATE/TIME OF EXAM: 11/08/2023 12:17 PM CLINICAL INFORMATION: None relevant/not provided if blank. Indication: W19.XXXA: Unspecified fall, initial encounter XR SHOULDER LEFT 2VW OR MORE HISTORY: W19.XXXA: Unspecified fall, initial encounter COMPARISON: None. FINDINGS: There are no fracture, dislocation, suspicious intrinsic bony lesions, acromioclavicular joint separation, significant arthriticchanges, or suspicious soft tissue abnormalities. The height of subacromial spaceis normal. A left dual-lead transvenous pacemaker is partially imaged. The imaged ribs and imaged portion of the lung are unremarkable. IMPRESSION: Unremarkable study. > Interpreting Provider: Raulito Newby MD on 11/08/2023 1:43 PM [facility] ORDERABLES * CARDIAC EKG ORDER (08/18/2023 5:45 PM CDT) Narrative 08/18/2023 5:45 PM CDT Ordered by an unspecified provider. Scanned Document CARDIAC SERVICES ORD ERABLES * EKG 12-LEAD (08/17/2023 8:44 PM CDT) Only the most recent of3 resultswithin the time period is included. Ventricular Rate 90 BPM [facility] Atrial Rate 93 BPM [facility] QRS Duration ms 134 ms [facility] Q-T Interval ms 400 ms [facility] QTC Calculation (Bezet) 489 ms [facility] Calculated R [place] 57 degrees [facility] Calculated T [place] -164 degrees [facility] Interpretation EKG Ventricular-paced rhythm WITH OCCASIONAL supraventricular complexes POSSIBLE Underlying ATRIAL FIBRILLATION ABNORMAL ECG NO PREVIOUS ECGS AVAILABLE Confirmed by DO JOY STEPHANIE ([id number]) on 08/18/2023 6:20:43 PM [facility] 08/17/2023 8:44 PM CDT 08/18/2023 6:20 PM CDT Fe Garza MD ECG ORDERABLES [facility] * CT HEAD CERV SPINE WO CONTRAST (08/17/2023 7:33 PM CDT) Anatomical Region Laterality Modality Head Computed Tomogra phy 08/18/2023 8:34 AM CDT Impressions 08/18/2023 9:41 AM CDT IMPRESSION: 1. Linear hyperattenuation along the margin of the large right MCA territory infarct, not described on the prior outside reports and most likely subarachnoid hemorrhage. 2. Left convexity subdural hematoma without significant mass effect, similar to that reported on outside CT from 07/14/2023. 3. No evidence of acute fracture in the cervical spine. Findings regarding the subarachnoid hemorrhage were discussed in detail with the covering emergency medicine provider, HENRIQUE Mcdermott by Dr. Adrian Aguero of Radiology via telephone at 9:35 AM on 08/18/2023 with readback comprehension and verfication. For further questions please contact the department of Radiology at [phone]. > Interpreting Provider: Adrian Aguero MD on 08/18/2023 9:41 AM Narrative 08/18/2023 9:41 AM CDT PROCEDURE: CT HEAD CERV SPINE WO CONTRAST DATE/TIME OF EXAM: 08/17/2023 7:34 PM CLINICAL INFORMATION: None relevant/not provided if blank. Indication: W19.XXXA: Unspecified fall, initial encounter Additional History: COMPARISON: No prior images are available for comparison. TECHNIQUE: CT of the head and cervical spine was performed utilizing standard protocol. CT dose reduction technique was used, including Automated Exposure Control. FINDINGS: Head: Left convexity subdural hematoma which is heterogeneously attenuating calcification in areas measuring up to 8 mm and thickness is similar to that reported on an outside CT report from 07/14/2023. Large subacute right MCA territory infarct. Thin somewhat linear focal hyperattenuation along the inferior margin of the infarct in the medial right temporal lobe on image 40 of series 602B, suspicious for subarachnoid hemorrhage. There is mild cerebral volume loss with associated ex vacuo ventricular dilatation. The basilar cisterns are patent. No mass effect or midline shift is seen. The ugalde-white matter differentiation is otherwise normal. Periventricular white matter hypoattenuation is indicative of chronic small vessel ischemic disease. There is vascular calcification of the carotid siphons. The visualized portions of the orbits, paranasal sinuses, and mastoids appear normal. Left frontal scalp hematoma. Cervical spine: There is minimal anterolisthesis of C3 on C4 and C4 on C5. Vertebral alignment is otherwise normal. Vertebral bodies are normal in height without evidence of acute fracture. Multilevel degenerative disc and joint disease including advanced multilevel facet osteoarthritis contributing to severe multilevel neural foraminal stenoses. In the lower cervical spine, there is also ossification and thickening of the ligamentum flavum intermediate to at least mild to moderate central canal stenosis. Atherosclerosis of the carotid bifurcations. Procedure Note Adrian Aguero MD - 08/18/2023 PROCEDURE: CT HEAD CERV SPINE WO CONTRAST DATE/TIME OF EXAM: 08/17/2023 7:34 PM CLINICAL INFORMATION: None relevant/not provided if blank. Indication: W19.XXXA: Unspecified fall, initial encounter Additional History: COMPARISON: No prior images are available for comparison. TECHNIQUE: CT of the head and cervical spine was performed utilizing standard protocol. CT dose reduction technique was used, including Automated ExposureControl. FINDINGS: Head: Left convexity subdural hematoma which is heterogeneously attenuating calcification in areas measuring up to 8 mm and thickness is similar to that reported on an outside CT report from 07/14/2023. Large subacute right MCA territory infarct. Thin somewhat linear focal hyperattenuation along the inferior margin of the infarct in the medial right temporal lobe on image 40 of series 602B, suspicious forsubarachnoid hemorrhage. There is mild cerebral volume loss with associated ex vacuo ventricular dilatation. The basilar cisterns are patent. No mass effect or midline shift is seen. The ugalde-white matter differentiation is otherwisenormal. Periventricular white matter hypoattenuation is indicative of chronicsmall vessel ischemic disease. There is vascular calcification of the carotid siphons. The visualized portions of the orbits, paranasal sinuses, and mastoids appear normal. Left frontal scalp hematoma. Cervical spine: There is minimal anterolisthesis of C3 on C4 and C4 on C5. Vertebral alignment is otherwise normal. Vertebral bodies are normal in height without evidence of acute fracture. Multilevel degenerative disc andjoint disease including advanced multilevel facet osteoarthritis contributingto severe multilevel neural foraminal stenoses. In the lower cervicalspine, there is also ossification and thickening of the ligamentum flavum intermediate to at least mild to moderate central canal stenosis. Atherosclerosis of the carotid bifurcations. IMPRESSION: 1. Linear hyperattenuation along the margin of the large right MCA territory infarct, not described on the prior outside reports and most likely subarachnoid hemorrhage. 2. Left convexity subdural hematoma without significant mass effect, similar to that reported on outside CT from 07/14/2023. 3. No evidence of acute fracture in the cervical spine. Findings regarding the subarachnoid hemorrhage were discussed in detail with the covering emergency medicine provider, HENRIQUE Mcdermott of Radiology via telephone at 9:35 AM on 08/18/2023 with readback comprehension and verfication. For further questions please contact the department of Radiology at [phone]. > Interpreting Provider: Adrian Aguero MD on 08/18/2023 9:41 AM Fe Garza MD CT ORDERABLES * XR PELVIS W LEFT HIP 2VW (08/17/2023 7:24 PM CDT) Anatomical Region Laterality Modality Pelvis Radiographic Sakshi ging 08/18/2023 7:40 AM CDT Impressions 08/18/2023 7:42 AM CDT IMPRESSION: 1. No evidence of acute osseous injury. > Interpreting Provider: Adrian Aguero MD on 08/18/2023 7:42 AM Narrative 08/18/2023 7:42 AM CDT PROCEDURE: XR PELVIS W LEFT HIP 2VW DATE/TIME OF EXAM: 08/17/2023 7:24 PM CLINICAL INFORMATION: None relevant/not provided if blank. Indication: W19.XXXA: Unspecified fall, initial encounter Additional History: COMPARISON: None. FINDINGS: Moderate osteoarthritis. Left femoral head appears well-seated. No acute fracture is identified. Bone mineralization is normal. Procedure Note Adrian Aguero MD - 08/18/2023 PROCEDURE: XR PELVIS W LEFT HIP 2VW DATE/TIME OF EXAM: 08/17/2023 7:24 PM CLINICAL INFORMATION: None relevant/not provided if blank. Indication: W19.XXXA: Unspecified fall, initial encounter Additional History: COMPARISON: None. FINDINGS: Moderate osteoarthritis. Left femoral head appears well-seated. No acute fracture is identified. Bone mineralization is normal. IMPRESSION: 1. No evidence of acute osseous injury. > Interpreting Provider: Adrian Aguero MD on 08/18/2023 7:42 AM Fe Garza MD DIAGNOSTIC IMAGING ORDERABLES * XR CHEST 1 VW PORTABLE (08/17/2023 7:24 PM CDT) Only the most recent of2 resultswithin the time period is included. Anatomical Region Laterality Modality Chest Radiographic Sakshi ging 08/18/2023 7:21 AM CDT Impressions 08/18/2023 7:22 AM CDT IMPRESSION: No evidence of acute pulmonary disease. > Interpreting Provider: Adrian Aguero MD on 08/18/2023 7:22 AM Narrative 08/18/2023 7:22 AM CDT PROCEDURE: XR CHEST 1VW PORTABLE DATE/TIME OF EXAM: 08/17/2023 7:24 PM CLINICAL INFORMATION: None relevant/not provided if blank. Indication: W19.XXXA: Unspecified fall, initial encounter Additional History: COMPARISON: 07/18/2017 FINDINGS: A left subclavian approach pacemaker with right atrial and ventricular leads has been place. No confluent consolidation or definite effusion/pneumothorax is seen. Minimal bibasilar atelectasis. The cardiomediastinal silhouette is stable. Procedure Note Adrian Aguero MD - 08/18/2023 PROCEDURE: XR CHEST 1VW PORTABLE DATE/TIME OF EXAM: 08/17/2023 7:24 PM CLINICAL INFORMATION: None relevant/not provided if blank. Indication: W19.XXXA: Unspecified fall, initial encounter Additional History: COMPARISON: 07/18/2017 FINDINGS: A left subclavian approach pacemaker with right atrial and ventricular leads has been place. No confluent consolidation or definite effusion/pneumothorax is seen. Minimal bibasilar atelectasis. The cardiomediastinal silhouette isstable. IMPRESSION: No evidence of acute pulmonary disease. > Interpreting Provider: Adrian Aguero MD on 08/18/2023 7:22 AM Fe Garza MD DIAGNOSTIC IMAGING ORDERABLES * CARDIAC PROCEDURE ORDER (01/16/2018 7:50 PM CDT) Narrative 01/16/2018 7:50 PM CDT Ordered by an unspecified provider. Scanned Document CARDIAC SERVICES ORD ERABLES * CARDIAC RHYTHM STRIP ORDER (09/25/2017 8:28 PM CDT) Narrative 09/25/2017 8:28 PM CDT Ordered by an unspecified provider. Scanned Document CARDIAC SERVICES ORD ERABLES * MAGNESIUM BLOOD (09/19/2017 4:53 AM CDT) Only the most recent of3 resultswithin the time period is included. Magnesium 1.9 1.6 - 2.6 mg/dL 09/19/2017 5:29 AM CDT [facility] Blood BLOOD SPECIMEN / Unknown Venipuncture / Unknown 09/19/2017 4:53 AM CDT 09/19/2017 5:01 AM CDT Colton Villanueva MD LAB - CHEM ISTRY ORDERABLES Performing Organization Address [facility] Co de Phone Number [facility] [id number] [place] [address] * TROPONIN I (09/17/2017 4:44 AM CDT) Only the most recent of3 resultswithin the time period is included. Troponin I <0.015 0.000 - 0.049 ng/mL 09/17/2017 5:36 AM CDT [facility] Blood BLOOD SPECIMEN / Unknown Venipuncture / Unknown 09/17/2017 4:44 AM CDT 09/17/2017 5:05 AM CDT Narrative [facility] - 09/17/2017 5:36 AM CDT Note: Diagnosis of myocardial infarction requires symptoms of ischemia or EKG changes of ischemia and Troponin I >99th of normal (0.05 ng/mL). Troponin should be drawn on initial assessment and 3-6 hours later as clinically indicated. Any condition resulting in myocardial cell damage can increase cardiac troponin levels. In addition to myocardial infarction, these include but are not limited to congestive heart failure (CHF), arrhythmia, myocarditis, and non-cardiac related causes such as pulmonary embolism, renal failure and sepsis. Ras Streeter APRN-NUCLEAR TEST TECHNICIAN LAB - CHEMISTR Y ORDERABLES Performing Organization Address [facility] Co de Phone Number [facility] [address] [place] [address] * (ABNORMAL) NT-PRO BNP (09/16/2017 9:05 PM CDT) NT-proBNP 981.0(H) <300.0 pg/mL 09/16/2017 9:48 PM CDT [facility] Blood BLOOD SPECIMEN / Unknown Venipuncture / Unknown 09/16/2017 9:05 PM CDT 09/16/2017 9:09 PM CDT Narrative [facility] - 09/16/2017 9:48 PM CDT NT-proBNP Patient Age Acute HF Unlikely Acute HF Likely <50 years <300 pg/mL >450 pg/mL 50-75 years <300 pg/mL >900 pg/mL >75 years <300 pg/mL >1800 pg/mL Reference: KAREN Vogt et al. ICON Study. Heart Journal (2006) 27, [phone]- [phone] Both BNP and NT-proBNP derive from the precursor molecule called proBNP which is secreted from the ventricles in response to ventricle volume expansion and/or pressure overload. The secreted proBNP is subsequently cleaved by enzymes to form BNP, the active hormone and NT-proBNP an inactive metabolite. NT-proBNP has a longer half-life of 1.5-2.0 hours verses BNP with a half-life of 20 min for BNP. Both are useful biomarkers of ventricular distension due to increased intracardiac pressure. Both BNP and NT-proBNP increase with age and renal insufficiency. Increased concentrations of NT-proBNP have also been observed in the setting of acute myocardial infarction, right ventricular failure, valvular heart disease, and atrial fibrillation. Ras VALLE LAB - CHEMISTR Y ORDERABLES [facility] [address] [place] [address] Care Teams Work Environment Safety Inspector Relationship Specialty Start Date End Date Christine Ortiz APRN-CNP [address] [id number] PCP - General Nurse Practitioner 01/12/24
[2024-06-06 12:57] VITALS: BP 102/75; PULSE 96; RESP 20; TEMP 36.6; O2SAT 95
--- NOTE | 2024-06-06 12:58 | ED_ITS ---
HPI - General Adult General Chief complaint: Urogenital-Female Stated complaint: UTI Time Seen by Provider: 06/06/24 12:55 Source: patient Mode of arrival: ambulatory Limitations: no limitations History of Present Illness HPI narrative: 78-year-old female with a history of CVA with left-sided weakness, colon cancer status post surgery /ostomy, CAD status post stents with frequent urinary tract infection presents to the ED with a 2 day history of -- erratic behavior, anxiety and insomnia. Patient has similar symptoms during her urinary tract infection. She was treated 2 2 weeks ago with a 5 day course of antibiotics. No fever or chills no dysuria or hematuria. Ostomy is functioning. Onset (ago): day(s) ( 2 days) Relieving factors: none Exacerbating factors: none Related Data Home Medications ?Medication ?Instructions ?Recorded ?Confirmed ?Last Taken ?Type aspirin 81 mg chewable tablet 1 tablet PO DAILY 06/06/24 Unknown History baclofen 5 mg tablet 2.5 mg PO TID 06/06/24 Unknown History cholecalciferol (vitamin D3) 25 25 mcg PO DAILY 06/06/24 Unknown History mcg (1,000 unit) capsule escitalopram oxalate 10 mg tablet 10 mg PO DAILY 06/06/24 Unknown History levetiracetam 500 mg tablet 500 mg PO Q12H 06/06/24 Unknown History loperamide 2 mg capsule 4 mg PO TID 06/06/24 Unknown History metoprolol succinate 50 mg 50 mg PO DAILY 06/06/24 Unknown History tablet,extended release 24 hr olanzapine 2.5 mg tablet 2.5 - 5 mg PO DAILY PRN NEEDED 06/06/24 Unknown History quetiapine 25 mg tablet 25 mg PO HS 06/06/24 Unknown History sodium bicarbonate 650 mg tablet 650 mg PO TID 06/06/24 Unknown History trazodone 50 mg tablet 50 mg PO HS 06/06/24 Unknown History Allergies Allergy/AdvReac Type Severity Reaction Status Date / Time adhesive tape Allergy Unknown Verified 06/06/24 13:10 simvastatin Allergy Unknown Verified 06/06/24 13:10 Review of Systems 2 Review of Systems: All systems reviewed & are unremarkable except as noted in HPI and below Constitutional: Constitutional: Reports as per HPI and Reports no additional constitutional complaints Eyes: Eyes: Reports as per HPI and Reports no additional eye complaints ENT: Reports system reviewed and no additional complaints, except as documented and Reports as per HPI Cardiovascular: Cardiovascular: Reports as per HPI and Reports no additional cardiovascular complaints Respiratory: Respiratory: Reports as per HPI and Reports no additional respiratory complaints Gastrointestinal: Gastrointestinal: Reports as per HPI and Reports no additional gastrointestinal complaints Genitourinary: Genitourinary: Reports no additional female genitourinary complaints and Reports as per HPI Musculoskeletal: Musculoskeletal: Reports no additional musculoskeletal complaints and Reports as per HPI Integumentary/Breasts: Skin/Breast: Reports system reviewed and no additional complaints, except as docu and Reports as per HPI Neurologic: Reports system reviewed and no additional complaints, except as documented and Reports as per HPI Comments: Left hemiplegia Psychiatric: Psychiatric: Reports no additional psychiatric complaints, Reports as per HPI and Reports anxiety Endocrine: Endocrine: Reports no additional endocrine complaints and Reports as per HPI Hematologic/Lymphatic: Hematologic/Lymphatic: Reports no additional hematologic/lymphatic complaints and Reports as per HPI Allergic/Immunologic: Allergic/Immunologic: Reports no additional allergic/immunologic complaints and Reports as per HPI [facility] Past Medical History Medical History (Updated 06/06/24 @ 14:37 by Dash Mohr MD) Recurrent UTI Colostomy in place Dyslipidemia CAD (coronary artery disease) Colon cancer Atrial fibrillation Intracranial hemorrhage Left hemiplegia Surgical History Surgical History H/O heart artery stent Exam 2 Narrative: vitals are stable. Afebrile Const: General: no acute distress Nutritional Appearance: well nourished Orientation/consciousness: patient oriented x3 HENMT: Head: normal to inspection Ears: external ears normal F mamta/Nose/Sinus: Normal external nose present Face and sinus: normal facial exam Mouth: Yes Normal oral and palatal mucosa present Throat: posterior oropharynx normal Eyes: Conjunctivae: conjunctivae normal Pupils: Equal, round and reactive pupils present EOM: EOMs intact bilaterally Direct Ophthalmoscopy: no photophobia Neck: Neck: normal visual inspection, no lymphadenopathy and no meningeal signs Chest: Chest palpation & inspection: normal inspection of the chest Resp: Effort & Inspection: normal respiratory effort Auscultation: clear to auscultation bilaterally Cardio: Rate: regular rate Rhythm: regular rhythm GI: GI Palp: Yes Soft to palpation Auscultation: normal bowel sounds O ther: ostomy function no tenderness/rigidity / rebound. : General: Yes no CVA tenderness Back/Spine/Pelvis: Back: no CVA tenderness Skin: General skin exam: normal color Rashes: no rashes Wounds: no wounds Neuro: General: patient oriented x3, moves all extremities, no meningeal signs, no focal motor deficits and CN's II-XI intact bilaterally Cranial nerves: Yes Nystagmus not present Speech: normal speech Gait exam (Neuro): Normal gait present Extrem: General: normal to inspection and no clubbing, cyanosis or edema Psych: Mental Status: mental status grossly normal Affect: normal affect Attitude: cooperative Course Course Emergency Course: urinary tract infection altered mental status Vital Signs Vital signs: Vital Signs Temperature 36.6 C 06/06/24 12:57 Pulse Rate 96 06/06/24 12:57 Respiratory Rate 06/06/24 12:57 Blood Pressure 102/75 06/06/24 12:57 Pulse Oximetry 95 06/06/24 12:57 Oxygen Delivery Room Air 06/06/24 12:57 Temperature 36.6 C 06/06/24 12:57 Pulse Rate 96 06/06/24 12:57 Respiratory Rate 20 06/06/24 12:57 Blood Pressure 102/75 06/06/24 12:57 Pulse Oximetry 95 06/06/24 12:57 Oxygen Delivery Room Air 06/06/24 12:57 Medical Decision Making MDM Narrative Medical decision making narrative: Urinary tract infection Differential Diagnosis Differential Diagnosis: sepsis, CVA Medical Records Medical records reviewed: Yes I reviewed the external patient's medical records. Vital Signs Vital Signs: Vital Signs Temperature 36.6 C 06/06/24 12:57 Pulse Rate 96 06/06/24 12:57 Respiratory Rate 06/06/24 12:57 Blood Pressure 102/75 06/06/24 12:57 Pulse Oximetry 95 06/06/24 12:57 Oxygen Delivery Room Air 06/06/24 12:57 Temperature 36.6 C 06/06/24 12:57 Pulse Rate 96 06/06/24 12:57 Respiratory Rate 06/06/24 12:57 Blood Pressure 102/75 06/06/24 12:57 Pulse Oximetry 95 06/06/24 12:57 Oxygen Delivery Room Air 06/06/24 12:57 Lab Data 06/06/24 13:42 06/06/24 13:42 Labs: Lab Results 06/06/24 Range/Units 13:42 WBC 4.9 (4.8-10.8) K/mm3 RBC 3.97 L (4.20-5.40) M/mm3 Hgb 12.1 (11.7-13.8) g/dL Hct 38.1 (35.0-42.0) % MCV 96.0 (78.0-102.0) fL MCH 30.5 (27.0-31.0) pg MCHC 31.8 L (32-36) g/dL RDW 12.5 (11.6-14.4) % Plt Count 246 (150-420) K/mm3 MPV 9.6 (9.2-11.8) fl Immature Gran % (Auto) 0.6 H (0.0-0.0) % Neut % (Auto) 62.1 (50.0-70.0) % Lymph % (Auto) 22.1 (18.0-42.0) % Mcnairy % (Auto) 9.3 (2.0-11.0) % Eos % (Auto) 5.1 (1.0-6.0) % Baso % (Auto) 0.8 (0.0-1.0) % Lymph # (Auto) 1.09 L (1.10-4.50) K/mm3 Mcnairy # (Auto) 0.46 (0.10-0.90) K/mm3 Eos # (Auto) 0.25 (0.02-0.50) K/mm3 Baso # (Auto) 0.04 (0.00-0.10) K/mm3 Abs Immat Gran (auto) 0.03 H (0.00-0.00) K/mm3 Absolute Neuts (auto) 3.06 (1.70-7.20) K/mm3 Absolute Nucleated RBC 0.00 (0.00-0.00) K/mm3 Nucleated RBC % 0.0 (0-0.0) % Sodium 142 (136-145) mmol/L Potassium 4.0 (3.5-5.1) mmol/L Chloride 108 (98-108) mmol/L Carbon Dioxide 23 (21-32) mmol/L Anion Gap 11 (4-12) mmol/L BUN 10 (7-18) mg/dL Creatinine 1.09 H (0.55-1.02) mg/dL Estim Creat Clear Calc 35 ml/min Estimated GFR 49 L (59 - ) Glucose 149 H (70-99) mg/dL Calculated Osmolality 296 H (285-295) mOsm/kg Lactic Acid 1.7 (0.4-2.0) mmol/L Calcium 9.0 (8.5-10.1) mg/dL Total Bilirubin 0.4 (0.00-1.00) mg/dL AST 21 (15-37) U/L ALT 36 (14-59) U/L Alkaline Phosphatase 80 (46-116) U/L Troponin I 4.0 (0.00-60.4) ng/L NT-Pro-B Natriuret Pep 726 H (0-450) pg/mL Total Protein 6.6 (6.4-8.2) g/dL Albumin 3.4 (3.4-5.0) g/dL Lipase 36 (16-77) U/L Urine Color Light yellow (Yellow) Urine Appearance Cloudy A (Clear) Urine pH 6.0 (5.0-8.0) Ur Specific Morven 1.025 H (1.010-1.020) Urine Protein Negative (Negative) Urine Glucose (UA) Negative (Negative) Urine Ketones Negative (Negative) Ur Blood (Man) Negative (Negative) Urine Nitrate Negative (Negative) Urine Bilirubin Negative (Negative) Urine Urobilinogen 0.2 (0.2-1.0) mg/dL Leukocyte Esterase Rfl 2+ H (Negative) DENISE/UL Urine RBC 3-5 H (0-2) /hpf Urine WBC 31-50 H (0-3) /hpf Urine WBC Clumps Present H (None) /hpf Ur Squamous Epith Cells Moderate H (Few) /hpf Amorphous Sediment Moderate H (None) Urine Bacteria 3+ H (None) /hpf Hyaline Casts 15-19 H (None) /lpf Discharge Plan Discharge Clinical Impression: Urinary tract infection Qualifiers: Urinary tract infection type: site unspecified Hematuria presence: without hematuria Qualified Code(s): N39.0 - Urinary tract infection, site not specified CKD (chronic kidney disease) Qualifiers: Chronic kidney disease stage: stage 3 (moderate) Chronic kidney disease stage 3 subtype: stage 3b (GFR 30-44) Qualified Code(s): N18.32 - Chronic kidney disease, stage 3b Patient Disposition: Home, Self-Care Condition: Stable Instructions: Antibiotic Form Additional Instructions: follow-up with primary care physician to follow-up on results of the culture sensitivity. Patient Language: Sammarinese Prescriptions: New amoxicillin-pot clavulanate 875-125 mg tablet 1 tablet PO Q12H Qty: 10 0RF No Action quetiapine 25 mg tablet 25 mg PO HS loperamide 2 mg capsule 4 mg PO TID trazodone 50 mg tablet 50 mg PO HS metoprolol succinate 50 mg tablet extended release 24 hr 50 mg PO DAILY levetiracetam 500 mg tablet 500 mg PO Q12H olanzapine 2.5 mg tablet 2.5 - 5 mg PO DAILY PRN (Reason: NEEDED ) sodium bicarbonate 650 mg tablet 650 mg PO TID aspirin 81 mg tablet,chewable 1 tablet PO DAILY escitalopram oxalate 10 mg tablet 10 mg PO DAILY cholecalciferol (vitamin D3) 25 mcg (1,000 unit) capsule 25 mcg PO DAILY baclofen 5 mg tablet 2.5 mg PO TID Follow-up/Referrals: UNKNOWN,DOCTOR [Non-Staff] - Time of Disposition: 14:42
--- OUTSIDE RECORDS SUMMARY | 2024-06-06 13:40 | XMS_ITS | Clinical Summary ---
Author Organization [facility] [address] Address [address] [place] [address] Care Team Providers Care Life Insurance Sales Name Role Phone Neeraj Izaguirre MD, William C. Unavailable Faith Streeter NP Unavailable Jef Qureshi MD Unavailable Faith Spicer MD Primary Care Provider [phone] Sena Matthews MD Unavailable Allergies Active Allergy Reactions Criticality Noted Date [...] assistance with ADLs, needs wheelchair when outside. 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 Interrogation normal. No episodes of VFib/Vtach. Patient [...] S/P ablation of atrial fibrillation Atrial flutter ([facility]) 05/07/2013 Overview (07/26/2016): ATRIAL FLUTTER Assessment & Plan (08/18/2023 11:41 PM CDT): - Cont metoprolol Encounters Date Type Department Care Team Description 06/04/2024 1:00 PM HYDROELECTRIC PLANT ELECTRICIAN Residential Visit [facility] Palliative Care [address] [place] [address] Francisca Senior NP Arrived 05/14/2024 9:00 AM HYDROELECTRIC PLANT ELECTRICIAN Residential Visit [facility] Palliative Care [address] [place] [address] Francisca Senior NP Vascular dementia with other behavioral disturbance, unspecified dementia severity (HCC) (Primary Dx); Urinary tract infection without hematuria, site unspecified; CVA, old, hemiparesis ([facility]) (HCC); Palliative care encounter 05/12/2024 Documentation [facility] Palliative Care [address] [place] [address] Francisca Senior NP 05/12/[address] [address] Beti Granados RN 05/11/[address] [address] Beti Granados RN 05/10/[address] [address] Beti Granados, RN 05/07/2024 10:00 AM HYDROELECTRIC PLANT ELECTRICIAN Office Visit [facility] Stroke [address] [facility] [address] [place] [phone] Sena Matthews MD History of ischemic stroke (Primary Dx); Moderate dementia with agitation, unspecified dementia type (HCC); Spasticity due to old stroke 05/07/2024 Documentation [facility] Palliative Care [address] [place] [address] Francisca Senior NP 03/19/2024 1:00 PM HYDROELECTRIC PLANT ELECTRICIAN Residential Visit [facility] Palliative Care [address] [place] [address] Francisca Senior NP CVA, old, hemiparesis ([facility]) ([facility]) (Primary Dx); Coronary artery disease involving duckwater heart, unspecified vessel or lesion type, unspecified whether angina present; Presence of ileostomy ([facility]) ([facility]); Agitation; Paroxysmal atrial fibrillation ([facility]) ([facility]) from Last 3 Months Immunizations [...] History Date Comments Hyperlipidemia Hypertension Atrial fibrillation ([facility]) ([facility]) Pacemaker in place Asthma SHRUTHI (obstructive sleep apnea) In tolerant of CPAP Cardiac arrest with ventricu lar fibrillation ([facility]) ([facility]) 04/05/2023 OOH, at [facility] Acute right MCA stroke ([facility]) 03/26/2023 Car dioembolic source Colon cancer ([facility]) ([facility]) 04/15/2023 Sta ge II Ileostomy in place ([facility]) ([facility]) 04/19/2023 NSTEMI (non-ST elevated myoc ardial infarction) ([facility]/HCC) ([facility]) 04/05/2023 LAD stenosis, cause of SCA CAD (coronary artery disease) EtOH dependence (CMS/HCC) ([facility]) Quit 03/2023 Aspiration pneumonia ([facility]/HCC) ([facility]) 04/05/2023 Dysphagia 04/01/2023 S/p CVA. [...] drink = 0.6 oz pur e alcohol) [facility] Unit[employer] Answer Date Recorded In the past 12 months has [employer], [employer], oil, or water [employer] threatened to shut off services in your [...] How often do you attend [facility] or jew services? Patient unable to answer 10/20/2023 Do you belong to any clubs o r organizations such as jehovah's witness groups, unions, fraternal or athletic groups, or [...] place to sleep or slept in a fci (including now)? Patient unable to answer 08/21/2023 [...] any time in the past 12 m [facility], were you homeless or living in a fci (including now)? 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1 cm (5' 5 ) 05/07/2024 9:56 AM HYDROELECTRIC PLANT ELECTRICIAN Body Mass Index 24.13 05/07/2024 9:56 AM HYDROELECTRIC PLANT ELECTRICIAN Plan of Treatment Health Maintenance Due Date [...] Screening Discontinued Medical Devices Implanted Type Area Long Winder Tender Device Identifier Shelf Expiration Date Model / Serial / Lot TerumMass[employer] Medical Betsy Angio-Seal Vip 6fr Closere Device [id number] - [id number] - [id number] Implanted:Qty: 1 on 05/02/2023 by Isaac Garcia MD PhD at [facility] Collagen Right: Femoral [employer] Betsy 09/30/2023 [id number] / [id number] / [id number] [employer] Stent Coronary De Rx Cocr Ors Msn 2.5x40mm [id number] - [id number] - [id number] Implanted:Qty: 1 on 05/02/2023 by Isaac Garcia MD PhD at [facility] Stent [employer] 12/14/2024 [id number] / [id number] / [id number] Pacemaker Left: Chest [employer] Trufill Glue 1gm Nbca [id number] - [id number] Implanted:Qty: 1 on 06/24/2023 at [facility] [employer] 04/20/2025 [id number] / / [id number] Procedures Procedure Name Priority Date/Time Associated Diagnosis Comments COLONOSCOPY 04/15/2023 9:23 AM HYDROELECTRIC PLANT ELECTRICIAN from Last 3 Months or Most Recently Relevant to Health Maintenance Results * COLONOSCOPY (04/15/2023 9:23 AM HYDROELECTRIC PLANT ELECTRICIAN) Anatomical Region Laterality Modality Other Narrative Procedure Note Ld Dunn MD - 04/15/2023 9:23 AM [facility] Patient Name: Shantelle Crystal Procedure Date: 04/15/2023 9:23 AM Date of : 1945 Admit Type: Inpatient Age: 77 Gender: Female Attending MD: Ld Dunn M.D. Room: [facility] ENDOSCOPY Note Status: Finalized Procedure: Colonoscopy [...] scope was passed under direct vision.The CF [id number] endoscope was introduced through the anus [...] On: 04/15/2023 9:23 AM Recognized by the [place] [employer] for promoting quality in endoscopy Ld Dunn MD ENDOSCOPY PROCED URES Final Result from Last 3 Months or Most Recently Relevant to Health Maintenance Insurance MEDICARE [facility] MEDICARE [facility] MEDICARE SUPPLEMENT MEDICARE [facility] MEDICARE SUPPLEMENT Advance Directives For more information, please contact: [phone] Documents on File Type Date Recorded Patient Dry Wall Sprayer Expl anation Power of Hardwood Floor Sander 10/18/2023 7:03 PM Medic [place]. 2.pdf ADVANCE DIRECTIVE 05/15/2023 5:48 PM POWER OF BELL HOLE DIGGER-MEDICAL ADVANCE DIRECTIVE 05/01/2023 12:31 PM RADHA R OF BELL HOLE DIGGER-MEDICAL * Full Code (Latest Code Status on [...] Crystal Daughter Health Care Agent Care Teams Life Insurance Sales Relationship Specialty Start Date End Date Faith pSicer MD [address] [place] [address] PCP - General Geriatric Medicine 03/03/24 Rasheed Pickard Jr., MD [address] [facility] [phone] [place] [address] Consulting Physician Colon and Rectal Surgery 06/01/23 Faith Streeter NP [address] [place] [address] Nurse Practitioner Hospice and Palliative Medicine 12/26/23 Jef Qureshi MD [address] [place] [address] Medical Oncology 03/03/24 Sena Matthews MD [address] [facility] [address] [address] Consulting Physician Neurology 05/10/24
--- OUTSIDE RECORDS SUMMARY | 2024-06-06 13:41 | XMS_ITS ---
Author Organization [facility] Address [address] [place] [address] Care Team Providers Care Supervisor Webbing Name Role Phone AngelFrancesmark Almeida DIGITAL MEDIA DESIGNER-BRUSH MACHINE SETTER Primary Care Provider Active Problems Problem Noted [...] treatments are documented for this patient in [facility]. Treatments may have been administered in another [...]
--- OUTSIDE RECORDS SUMMARY | 2024-06-06 13:41 | XMS_ITS | Patient Health Summary ---
Author Organization [facility] Address [address] [place] [address] Care Team Providers Care Metal Cutter Name Role Phone Christine Ortiz Elle BROOKS-CASSANDRA DEVELOPER Primary Care Provider Note from [facility],non-owned Affiliates and Associated Physician Practices is amultiple site organization consisting of ambulatory clinics and hospital sitesin [place], [place], [place] and [place]. This disclosure is being madepursuant to the Care Everywhere program and may not contain all information available regarding this patient. Last updated 18.[facility] [place] Allergies * Adhesive Sensitivity(Rash,Eye Redness) -Medium Criticality [...] 4 refills by 12/15/2024 * nystatin (Mycostatin) 451467 UNIT/GM powder(Started 12/16/2023) Apply to affected area [...] 4.0 - 10.7 x10E9/L 02/20/2024 12:29 PM [facility] RBC Count 4.47 3.90 - 5.20 x10E12/L 02/20/2024 12:29 PM [facility] Hemoglobin 13.4 11.9 - 15.8 g/dL 02/20/2024 12:29 PM [facility] Hematocrit 41.0 34.8 - 46.1 % 02/20/2024 12:29 PM [facility] MCV 91.7 80.0 - 98.0 fL 02/20/2024 12:29 PM [facility] MCH 30.0 26.7 - 33.6 pg 02/20/2024 12:29 PM [facility] MCHC 32.7 31.7 - 36.3 g/dL 02/20/2024 12:29 PM [facility] RDW-CV 13.2 11.3 - 14.8 % 02/20/2024 12:29 PM [facility] Platelet Count 224 150 - 420 x10E9/L 02/20/2024 12:29 PM [facility] MPV 9.5 7.8 - 11.4 fL 02/20/2024 12:29 PM [facility] Neutrophil % 64.9 41.0 - 74.0 % 02/20/2024 12:29 PM [facility] Lymphocyte % 20.8 17.0 - 47.0 % 02/20/2024 12:29 PM [facility] Monocyte % 8.4 3.0 - 11.0 % 02/20/2024 12:29 PM [facility] Eosinophil % 4.8 0.0 - 7.0 % 02/20/2024 12:29 PM [facility] Basophil % 0.7 0.0 - 1.6 % 02/20/2024 12:29 PM [facility] Immature Granulocytes % 0.4 0.0 - 1.0 % 02/20/2024 12:29 PM [facility] Neutrophil Absolute 3.55 1.60 - 7.50 x10E9/L 02/20/2024 12:29 PM [facility] Lymphocyte Absolute 1.14 1.00 - 4.40 x10E9/L 02/20/2024 12:29 PM [facility] Monocyte Absolute 0.46 0.15 - 1.00 x10E9/L 02/20/2024 12:29 PM [facility] Eosinophil Absolute 0.26 0.00 - 0.60 x10E9/L 02/20/2024 12:29 PM [facility] Basophil Absolute 0.04 0.00 - 0.13 x10E9/L 02/20/2024 12:29 PM [facility] Blood BLOOD SPECIMEN / Unknown Lab Venipuncture / Unknown 02/20/2024 11:50 AM CDT 02/20/2024 12:21 PM CDT Christine Ortiz WOOD PILE DRIVER OPERATOR-CASSANDRA DEVELOPER LAB - HEMATOLOG Y ORDERABLES Performing Organization Address [facility]/State/[facility] Co de Phone Number [facility] [address] [place] [address], [facility] [phone] * (ABNORMAL) COMPREHENSIVE METABOLIC PANEL (02/20/2024 11:50 AM CDT) Only the most recent of4 resultswithin the time period is included. BUN 18 7 - 26 mg/dL 02/20/2024 12:54 PM [facility] Creatinine 0.99(H) 0.56 - 0.96 mg/dL 02/20/2024 12:54 PM [facility] Sodium 135(L) 136 - 145 mmol/L 02/20/2024 12:54 PM [facility] Potassium 4.6(H) 3.5 - 4.5 mmol/L 02/20/2024 12:54 PM [facility] Chloride 109(H) 98 - 107 mmol/L 02/20/2024 12:54 PM [facility] CO2 20(L) 22 - 29 mmol/L 02/20/2024 12:54 PM [facility] Glucose 87 70 - 99 mg/dL 02/20/2024 12:54 PM [facility] Calcium 9.7 8.4 - 10.2 mg/dL 02/20/2024 12:54 PM [facility] Protein Total 7.0 6.0 - 8.3 g/dL 02/20/2024 12:54 PM [facility] Albumin 3.9 3.4 - 5.0 g/dL 02/20/2024 12:54 PM [facility] Bilirubin Total 0.4 0.2 - 1.2 mg/dL 02/20/2024 12:54 PM [facility] Alkaline Phosphatase 73 40 - 150 U/L 02/20/2024 12:54 PM [facility] ALT 21 5 - 55 U/L 02/20/2024 12:54 PM [facility] AST 22 5 - 34 U/L 02/20/2024 12:54 PM [facility] Anion Gap 6 6 - 16 02/20/2024 12:54 PM [facility] BUN/Creatinine Ratio 18 7 - 23 02/20/2024 12:54 PM [facility] Osmolality Calculated 281 275 - 295 mOsm/kg 02/20/2024 12:54 PM [facility] Albumin/Globulin Ratio 1.3 1.1 - 2.3 02/20/2024 12:54 PM [facility] eGFR by CKD-EPI 59(L) >=90 mL/min/1.7 3 m2 02/20/2024 12:54 PM [facility] Blood BLOOD SPECIMEN / Unknown Lab Venipuncture / Unknown 02/20/2024 11:50 AM T 02/20/2024 12:21 PM CDT Christine Ortiz [facility] LAB - CHEMISTRY ORDERABLES Performing Organization Address City/[facility]/ZIP Co de Phone Number [address] [address], [place] [phone] * VITAMIN B12 (02/20/2024 11:50 AM CDT) Vitamin B12 694 213 - 816 pg/mL 02/20/2024 1:38 PM CDT [facility] Blood BLOOD SPECIMEN / Unknown Lab Venipuncture / Unknown 02/20/2024 11:50 AM CDT 02/20/2024 12:21 PM CDT Christine Ortiz [facility] LAB - CHEMISTRY ORDERABLES Performing Organization Address [facility]/ZIP Co de Phone Number [address] [address], [place] [phone] * TSH (02/20/2024 11:50 AM CDT) TSH 0.708 0.350 - 4.940 uIU/mL 02/20/2024 1:38 PM CDT [facility] Blood BLOOD SPECIMEN / Unknown Lab Venipuncture / Unknown 02/20/2024 11:50 AM CDT 02/20/2024 12:21 PM CDT Christine Ortiz [facility] LAB - CHEMISTRY ORDERABLES Performing Organization Address City/[facility]/ZIP Co de Phone Number [address] [address], [place] [phone] * T4 FREE (02/20/2024 11:50 AM CDT) T4 Free 1.1 0.7 - 1.5 ng/dL 02/20/2024 1:38 PM CDT [facility] Blood BLOOD SPECIMEN / Unknown Lab Venipuncture / Unknown 02/20/2024 11:50 AM CDT 02/20/2024 12:21 PM CDT Christine Ortiz WOOD PILE DRIVER OPERATOR-CASSANDRA DEVELOPER LAB - CHEMISTRY ORDERABLES [facility] [address] [place] [address], [facility] [phone] * CT HEAD WO CONTRAST (11/08/2023 3:10 [...] the lung are unremarkable. Procedure Note Raulito Newby MD - 11/08/2023 PROCEDURE: XR SHOULDER LEFT [...] (Bezet) 489 ms [facility] MUSE Calculated R [place] 57 degrees [facility] MUSE Calculated T [place] -164 degrees [facility] MUSE Interpretation EKG Ventricular-paced rhythm WITH OCCASIONAL supraventricular complexes POSSIBLE Underlying ATRIAL FIBRILLATION ABNORMAL ECG NO PREVIOUS ECGS AVAILABLE Confirmed by DO JOY STEPHANIE ([id number]) on 08/18/2023 6:20:43 PM [facility] MUSE 08/17/2023 [...] please contact the department of Radiology at [phone]. > Interpreting Provider: Adrian Aguero MD on [...] please contact the department of Radiology at [phone]. > Interpreting Provider: Adrian Aguero MD on [...] Bone mineralization is normal. Procedure Note Adrian gAuero MD - 08/18/2023 PROCEDURE: XR PELVIS W [...] - CHEM ISTRY ORDERABLES Performing Organization Address [facility] Co de Phone Number [facility] [address] [place] [address] * TROPONIN I (09/17/2017 4:44 AM CDT) Only the most recent of3 resultswithin the time period is included. Troponin I <0.015 0.000 - 0.049 ng/mL 09/17/2017 5:36 AM CDT [facility] Blood BLOOD SPECIMEN / Unknown Venipuncture / Unknown 09/17/2017 4:44 AM CDT 09/17/2017 5:05 AM CDT Narrative [facility] - 09/17/2017 5:36 AM CDT Note: [...] embolism, renal failure and sepsis. Ras Streeter APRN-CASSANDRA DEVELOPER LAB - CHEMISTR Y ORDERABLES Performing Organization Address [facility] Co de Phone Number [facility] [address] [place] [address] * (ABNORMAL) NT-PRO BNP (09/16/2017 9:05 PM CDT) NT-proBNP 981.0(H) <300.0 pg/mL 09/16/2017 9:48 PM CDT [facility] Blood BLOOD SPECIMEN / Unknown Venipuncture / Unknown 09/16/2017 9:05 PM CDT 09/16/2017 9:09 PM CDT Narrative [facility] - 09/16/2017 9:48 PM CDT NT-proBNP [...] Ras VALLE LAB - CHEMISTR Y ORDERABLES [facility] [address] [place] [address] Care Teams Metal Cutter Relationship Specialty Start Date End Date Christine Ortiz APRN-CNP [address] [address] PCP - General Nurse Practitioner 01/12/24
--- OUTSIDE RECORDS SUMMARY | 2024-06-06 13:41 | XMS_ITS | Clinical Summary ---
Author Organization [facility] Address [address] [place] [address] Care Team Providers Care Evp Strategy Name Role Phone Rhys Martinez MD Primary Care Provider [phone] Allergies No known active allergies Medications dilTIAZem [...] Comments Blood Pressure 125/68 06/17/2022 8:02 AM FHA UNDERWRITER Pulse 72 06/17/2022 8:02 AM FHA UNDERWRITER Temperature 36.2 C (97.2 F) 06/17/2022 6:49 AM FHA UNDERWRITER Respiratory Rate 20 06/17/2022 6:49 AM FHA UNDERWRITER Oxygen Saturation 98% 06/17/2022 8:02 AM FHA UNDERWRITER Inhaled Oxygen Concentration - - Weight 74.8 kg (165 lb) 06/17/2022 6:49 AM FHA UNDERWRITER Height 165.1 cm (5' 5 ) 06/17/2022 6:49 AM FHA UNDERWRITER Body Mass Index 27.46 06/17/2022 6:49 AM FHA UNDERWRITER Plan of Treatment Health Maintenance Due Date [...] this topic Medical Devices Implanted Type Area Horticultural Therapist Device Identifier Shelf Expiration Date Model / Serial / Lot Tecnis 1 Piece Iol Simplicity Implanted:Qty: 1 on 05/13/2022 by Dandy Vyas MD at [facility] [id number] 02/16/2025 / [id number] / Tecnis Iol Implanted:Qty: 1 on 06/17/2022 by Dandy Vyas MD at [facility] Right: Eye 11/09/2024 / [id number] / Insurance MEDICARE [employer] Care Teams Evp Strategy Relationship Specialty Start Date End Date Rhys Martinez MD [address] [place] [id number] PCP - General INTERNAL MEDICINE 05/13/22
--- OUTSIDE RECORDS SUMMARY | 2024-06-06 13:41 | XMS_ITS | Clinical Summary ---
Author Organization [facility] [employer] Address [address] [facility] [place] [address] Care Team Providers Care Scrubber Machine Tender Name Role Phone Christine Ortiz CHIEF LIBRARIAN BRANCH-REDEVELOPMENT MANAGER Primary Care Provider Source Comments [facility],non-[facility] Affiliates and Associated Physician Practices is amultiple site organization consisting of ambulatory clinics and hospital sitesin [place], [place], [place] and [place]. This disclosure is being madepursuant to the Care Everywhere program and may not contain all information available regarding this patient. Last updated 18.[facility] Allergies Active Allergy Reactions Criticality Noted Date [...] 100 tablet 4 12/16/2023 Active nystatin (Mycostatin) 012722 UNIT/GM powder Apply to affected area 2 [...] 04/20/2024 Refill [facility] [address] [place] [address], [place] [address] Faith Spicer MD Refill Request [...] st Contact Info) Description 2024 11:00 AM IRON ERECTOR Office Visit [facility] [address] [facility], [place] [address] Christine Ortiz, CHIEF LIBRARIAN BRANCH-REDEVELOPMENT MANAGER [address] [phone] Health Maintenance Due Date Last Done Comments [...] 6:24 PM 09/19/2017 4:15 PM Care Teams Scrubber Machine Tender Relationship Specialty Start Date End Date Christine Ortiz APRN-REDEVELOPMENT MANAGER [address] [phone] PCP - General Nurse Practitioner 01/12/24
--- OUTSIDE RECORDS SUMMARY | 2024-06-06 13:41 | XMS_ITS | Referral Summary ---
Author Organization [facility] [address] Address [address] [place] [address] Care Team Providers Care Cake Froster Name Role Phone Neeraj Izaguirre MD, Rasheed Freedman Unavailable Faith Streeter SCOOP FILLER Unavailable Jef Qureshi MD Unavailable Faith Spicer MD Primary Care Provider [phone] Sena Matthews MD Unavailable [phone] Encounters Date Type Department Care Team Description 06/04/2024 1:00 PM CONTACT ASSEMBLER Residential Visit [facility] Palliative Care [address] [place] [address] Francisca Senior NP Arrived 05/14/2024 9:00 AM CONTACT ASSEMBLER Residential Visit [facility] Palliative Care [address] [place] [address] Francisca Senior NP Vascular dementia with other behavioral disturbance, unspecified dementia severity (HCC) (Primary Dx); Urinary tract infection without hematuria, site unspecified; CVA, old, hemiparesis (CMS/HCC) (HCC); Palliative care encounter 05/12/2024 Documentation [facility] Palliative Care [address] [place] [address] Francisca Senior NP 05/12/[address] [address] Beti Granados RN 05/11/[address] [address] Beti Granados RN 05/10/[address] [address] Beti Granados RN 05/07/2024 Documentation [facility] Palliative Care [address] [place] [address] Francisca Senior NP 05/07/2024 10:00 AM CONTACT ASSEMBLER Office Visit [facility] Stroke [facility] [address] [place] [phone] Sena Matthews MD History of ischemic stroke (Primary Dx); Moderate dementia with agitation, unspecified dementia type (HCC); Spasticity due to old stroke 03/19/2024 1:00 PM CONTACT ASSEMBLER Residential Visit [facility] Palliative Care [address] [facility] [address] [place] [address] Francisca Senior NP CVA, old, hemiparesis (CMS/HCC) (HCC) (Primary Dx); Coronary artery disease involving [place] heart, unspecified vessel or lesion type, unspecified [...] assistance with ADLs, needs wheelchair when outside. [facility] clinic increased her zyprexa around 10/09 to [...] decline and acute renal failure, cont GOC. 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 Interrogation normal. No episodes of VFib/Vtach. Patient [...] statin, metoprolol - CTM Paroxysmal atrial fibrillation ([facility]/HCC) 014 Overview (07/25/2016): ATRIAL FIBRILLATION Assessment & [...] S/P ablation of atrial fibrillation Atrial flutter ([facility]) 05/07/2013 Overview (07/26/2016): ATRIAL FLUTTER Assessment & [...] drink = 0.6 oz pur e alcohol) [facility] Utilities Answer Date Recorded In the past 12 months has [employer], [employer], oil, or water [employer] threatened to shut off services in your [...] answer 10/20/2023 How often do you attend [facility] or mosque services? Patient unable to answer 10/20/2023 Do you belong to any clubs o r organizations such as rastafari groups, unions, fraternal or athletic groups, or [...] place to sleep or slept in a [place] (including now)? Patient unable to answer 08/21/2023 [...] were you homeless or living in a [place] (including now)? 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) Not on file Not on file Not on file Last Filed Vital Signs Vital Sign Reading Time Taken Comments Blood Pressure 96/66 05/07/2024 9:56 AM CONTACT ASSEMBLER Pulse 90 05/07/2024 9:56 AM CONTACT ASSEMBLER Temperature 36.4 C (97.6 F) 03/03/2024 3:22 PM CONTACT ASSEMBLER Respiratory Rate 18 03/03/2024 3:22 PM CONTACT ASSEMBLER Oxygen Saturation 96% 03/03/2024 3:22 PM CONTACT ASSEMBLER Inhaled Oxygen Concentration - - Weight 65.8 kg (145 lb) 05/07/2024 9:56 AM CONTACT ASSEMBLER Height 165.1 cm (5' 5 ) 05/07/2024 9:56 AM CONTACT ASSEMBLER Body Mass Index 24.13 05/07/2024 9:56 AM CONTACT ASSEMBLER Plan of Treatment Not on file Medical Devices Implanted Type Area Education Managers Device Identifier Shelf Expiration Date Model / Serial / Lot [employer] Angio-Seal Vip 6fr Closere Device [id number] - [id number] - [id number] Implanted:Qty: 1 on 05/02/2023 by Isaac Garcia MD PhD at [facility] Collagen Right: Femoral [employer] 09/30/2023 [id number] / [id number] / [id number] [employer] Stent Coronary De Rx Cocr Ors Msn 2.5x40mm [id number] - [id number] - [id number] Implanted:Qty: 1 on 05/02/2023 by Isaac Garcia MD PhD at [facility] Stent [employer] 12/14/2024 [id number] / [id number] / [id number] Pacemaker Left: Chest [employer] Trufill Glue 1gm [facility] [id number] - [id number] Implanted:Qty: 1 on 06/24/2023 at [facility] [employer] 04/20/2025 [id number] / / [id number] Procedures Procedure Name Priority Date/Time Associated Diagnosis Comments COLONOSCOPY 04/15/2023 9:23 AM CONTACT ASSEMBLER from Last 3 Months or Most Recently Relevant to Health Maintenance Results * COLONOSCOPY (04/15/2023 9:23 AM CONTACT ASSEMBLER) Anatomical Region Laterality Modality Other Narrative Procedure Note Ld Dunn MD - 04/15/2023 9:23 AM [facility] Patient Name: Shantelle Crystal Procedure Date: 04/15/2023 9:23 AM Date of : 1945 Admit Type: Inpatient Age: 77 Gender: Female Attending MD: Ld Dunn M.D. Room: [facility] ENDOSCOPY Note Status: Finalized Procedure: Colonoscopy [...] The scope was passed under direct vision.The [id number] endoscope was introduced through the anus and [...] On: 04/15/2023 9:23 AM Recognized by the [employer] for promoting quality in endoscopy us Ld Dunn MD ENDOSCOPY PROCED URES Final Result from Last 3 Months or Most Recently Relevant to Health Maintenance Insurance MEDICARE [facility] MEDICARE BLUE CROSS MEDICARE SUPPLEMENT MEDICARE [facility] MEDICARE SUPPLEMENT Advance Directives For more information, please contact: [phone] Documents on File Type Date Recorded Patient Station Air Traffic Control Specialist Expl anation Power of Hydrotechnical Specialist 10/18/2023 7:03 PM Medic alXIAO. 2.pdf ADVANCE DIRECTIVE 05/15/2023 5:48 PM POWER OF CORPORATE DEVELOPMENT ANALYST-MEDICAL ADVANCE DIRECTIVE 05/01/2023 12:31 PM RADHA R OF CORPORATE DEVELOPMENT ANALYST-MEDICAL * Full Code (Latest Code Status on [...] Crystal Daughter Health Care Agent Care Teams Cake Froster Relationship Specialty Start Date End Date Faith Spicer MD [address] [facility] [address] PCP - General Geriatric Medicine 03/03/24 Rasheed Pickard Jr., MD [address] [facility] [phone] [place] [address] Consulting Physician Colon and Rectal Surgery 06/01/23 Faith Streeter NP [address] [facility] [place] [place] [address] Nurse Practitioner Hospice and Palliative Medicine 12/26/23 Jef Qureshi MD [address] [place] [address] Medical Oncology 03/03/24 Sena Matthews MD [address] [facility], [address] [address] Consulting Physician Neurology 05/10/24
--- OUTSIDE RECORDS SUMMARY | 2024-06-06 13:41 | XMS_ITS | Referral Summary ---
Author Organization [facility] Address [address] [facility] [place] [address] Care Team Providers Care Tattooer Name Role Phone Christine Ortiz HOME HEALTH REGISTERED NURSE-VP SOFTWARE SUPPORT Primary Care Provider Source Comments [facility],non-owned Affiliates and Associated Physician Practices is amultiple site organization consisting of ambulatory clinics and hospital sitesin [place], [place], [place] and [place]. This disclosure is being madepursuant to the Care Everywhere program and may not contain all information available regarding this patient. Last updated 18.[facility] Encounters Date Type Department Care Team Description 04/20/2024 Refill [facility] [address] [place] [address], [place] [address] Faith Spicer MD Refill Request from Last [...] 100 tablet 4 12/16/2023 Active nystatin (Mycostatin) 440484 UNIT/GM powder Apply to affected area 2 [...] st Contact Info) Description 2024 11:00 AM DRAGSAW OPERATOR Office Visit [facility] [address] [facility], [place] [address] Christine Ortiz, CECILIA-VP SOFTWARE SUPPORT [address] [address] Advance Directives * Full Code (Latest Code Status on File) Date Activated Date Inactivated Comments 09/16/2017 6:24 PM 09/19/2017 4:15 PM Care Teams Tattooer Relationship Specialty Start Date End Date Christine Ortiz, CECILIA-VP SOFTWARE SUPPORT [facility] [address] PCP - General Nurse Practitioner 01/12/24
--- OUTSIDE RECORDS SUMMARY | 2024-06-06 13:41 | XMS_ITS ---
Author Organization [facility] [address] Address [address] [place] [address] Care Team Providers Care Slitter Cut Off Operator Name Role Phone Neeraj Izaguirre MD, Rasheed Freedman Unavailable Faith Streeter NP Unavailable Jef Qureshi MD Unavailable [phone] Faith Spicer MD Primary Care Provider [phone] Sena Matthews MD Unavailable Active Problems Problem [...] assistance with ADLs, needs wheelchair when outside. 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 Interrogation normal. No episodes of VFib/Vtach. Patient [...] statin, metoprolol - CTM Paroxysmal atrial fibrillation ([facility]/HCC) 014 Overview (07/25/2016): ATRIAL FIBRILLATION Assessment & [...] comoribidities - Follows with [facility]. [facility]allow[facility] - [facility] On amiodarone therapy 05/20/20182020 Goals of care, counseling/discussion 07/28/2017 10/18/2023 Postprocedural state 02/21/2015 019 Overview (07/26/2016): S/P ablation of atrial fibrillation Atrial flutter ([facility]) 05/07/2013 Overview (07/26/2016): ATRIAL FLUTTER Assessment & Plan (08/18/2023 11:41 PM CDT): - Cont metoprolol
[2024-06-06 13:46] LABS: Basophils Absolute Auto 0.04 K/mm3 (0.00-0.10); Basophils Percent Auto 0.8 % (0.0-1.0); Eosinophils Absolute Auto 0.25 K/mm3 (0.02-0.50); Eosinophils Percent Auto 5.1 % (1.0-6.0); Hematocrit 38.1 % (35.0-42.0); Hemoglobin 12.1 g/dL (11.7-13.8); Immature Granulocyte Absolute 0.03 K/mm3 (0.00-0.00); Immature Granulocyte Percent A 0.6 % (0.0-0.0); Lymphocytes Absolute Auto 1.09 K/mm3 (1.10-4.50); Lymphocytes Percent Auto 22.1 % (18.0-42.0); Mean Corpuscular HGB Conc 31.8 g/dL (32-36); Mean Corpuscular Hemoglobin 30.5 pg (27.0-31.0); Mean Platelet Volume 9.6 fl (9.2-11.8); Monocytes Absolute Auto 0.46 K/mm3 (0.10-0.90); Monocytes Percent Auto 9.3 % (2.0-11.0); Neutrophils Absolute Auto 3.06 K/mm3 (1.70-7.20); Neutrophils Percent Auto 62.1 % (50.0-70.0); Platelet Count Result 246 K/mm3 (150-420); Red Blood Count 3.97 M/mm3 (4.20-5.40); Red Cell Distribution Width 12.5 % (11.6-14.4); White Blood Count 4.9 K/mm3 (4.8-10.8)
[2024-06-06 13:47] LABS: Add Urine Microscopic? YES; Bilirubin Urine Negative (Negative); Blood Urine Negative (Negative); Color Urine Light Yellow (Yellow); Glucose Urine UA Negative (Negative); Ketones Urine Negative (Negative); Leukocyte Esterase Ur 2+ LEU/UL (Negative); Nitrate Urine Negative (Negative); Protein Urine Negative (Negative); Specific Grav Ur 1.025 (1.010-1.020); Urobilinogen Urine 0.2 mg/dL (0.2-1.0)
[2024-06-06 13:58] LABS: Appearance Urine Cloudy (Clear); Squamous Epithelial Cell Urine Moderate /hpf (Few); WBC Clumps Urine Present /hpf; WBC Urine 31-50 /hpf (0-3)
[2024-06-06 13:59] LABS: Amorphous Sediment Urine Moderate; Bacteria Urine 3+ /hpf; Hyaline Casts Urine 15-19 /lpf
[2024-06-06 14:20] LABS: Lactic Acid Reflex 1.7 mmol/L (0.4-2.0)
[2024-06-06 14:28] LABS: Alanine Aminotransferase 36 U/L (14-59); Albumin Level 3.4 g/dL (3.4-5.0); Alkaline Phosphatase 80 U/L (46-116); Anion Gap 11 mmol/L (4-12); Aspartate Amino Transferase 21 U/L (15-37); Bilirubin,Total 0.4 mg/dL (0.00-1.00); Blood Urea Nitrogen 10 mg/dL (7-18); Carbon Dioxide 23 mmol/L (21-32); Chloride 108 mmol/L (98-108); Estimated CRCL calculation 35 ml/min; Estimated Glomerular Filt Rate 49; Glucose 149 mg/dL (70-99); Lipase 36 U/L (16-77); NT Pro B Type Natriuretic Pept 726 pg/mL (0-450); Osmolality Calculated 296 mOsm/kg (285-295); Sodium 142 mmol/L (136-145); Total Protein 6.6 g/dL (6.4-8.2)
[2024-06-06 14:49] VITALS: BP 109/78; PULSE 89; RESP 18; TEMP 36.6; O2SAT 98
== END 2024-06-06 14:55 | disposition home or self-care (01) ==
PROVIDERS: Emergency Provider Internal Medicine Critical Care Medicine
DX: N39.0 Urinary tract infection, site not specified (principal); N18.32 Chronic kidney disease, stage 3b; I25.10 Atherosclerotic heart disease of native coronary artery without angina pectoris; I48.91 Unspecified atrial fibrillation; Z79.899 Other long term (current) drug therapy; Z85.038 Personal history of other malignant neoplasm of large intestine; Z86.73 Personal history of transient ischemic attack (TIA), and cerebral infarction without residual deficits; Z87.440 Personal history of urinary (tract) infections
CPT/HCPCS: 36415; 80053; 81001; 83605; 83690; 83880; 84484; 85025; 87086; 99284